=== PATIENT | male | born 1955 | race Caucasian/White ===

== ENCOUNTER 2018-05-01 11:37 | Emergency (ER) | payer BC, MEDICARE ==
[2018-05-01 11:49] VITALS: RESP 16
--- NOTE | 2018-05-01 12:19 | XR ---
EXAMINATION TYPE: XR tibia fibula RT DATE OF EXAM: 05/01/2018 COMPARISON: NONE HISTORY: 63-year-old male with pain TECHNIQUE: 2 views FINDINGS: Right total knee arthroplasty is demonstrated. There is an oblique fracture that shows mild anterior comminution probably involving a portion of the tibial tuberosity. Fractures at the level of the meta diaphysis. On the lateral view, fracture appears to extend to the stem of the tibial tray component. Suspect chronic loose bodies within the knee joint. However, there is a moderate to large in Knee joint effusion. There is minimal posterior angulation at the fracture. There is an additional nondisplaced fracture of the fibular neck. Some bony irregularity along the medial margin of the medial malleolus. Horizontally oriented lucency of the distal tibial metaphysis on the lateral view may be projectional artifact. IMPRESSION: 1. Right total knee arthroplasty with oblique fracture of the proximal tibial metadiaphysis. On the l ateral view, fracture may extend to the stem of the tibial tray component. There is a moderate to lar ge knee joint effusion. 2. The proximal tibial fracture shows mild comminution anteriorly which may involve some of the tibia l tuberosity. Minimal anterior apex angulation of the fracture. 3. Horizontally oriented lucency within the distal tibial metaphysis on the lateral view may be proje ctional artifact. No fracture seen on the frontal view. Dedicated views of the ankle recommended to giselle alexis.
--- NOTE | 2018-05-01 13:28 | ED ---
Fall HPI - General Chief Complaint: Fall Stated Complaint: Fall Time Seen by Provider: 05/01/18 11:47 Source: patient, EMS Mode of arrival: EMS Limitations: no limitations - History of Present Illness Initial Comments: 63-year-old male presents emergency Department with chief complaint of slip and fall. Patient states she slipped on ice and his leg below his knee went to the side. Patient states he had a total knee replacement by Dr. Kemp in 2006. Patient states that he had no other fractures of his leg or injuries. Denies any head injury no loss conscious. Patient was given pain meds by EMS which has helped. Patient denies any chest or shortness breath. - Related Data Home Medications Medication Instructions Recorded Confirmed Cholecalciferol [Vitamin D3] 5,000 unit PO DAILY 06/10/15 05/01/18 Acetaminophen [Tylenol] 500 mg PO Q8H 05/01/18 05/01/18 Albuterol Inhaler [Ventolin Hfa 1 - 2 puff INHALATION RT-Q6H PRN 05/01/18 Inhaler] Aspirin [Parke Aspirin EC] 81 mg PO DAILY 05/01/18 05/01/18 Allergies Allergy/AdvReac Type Severity Reaction Status Date / Time cephalexin monohydrate Allergy Nausea & Verified 05/01/18 12:01 [From Keflex] Vomiting & Diarrhea latex AdvReac Rash/Hives Verified 05/01/18 12:01 Review of Systems ROS Statement: Those systems with pertinent positive or pertinent negative responses have been documented in the HPI. ROS Other: All systems not noted in ROS Statement are negative. Past Medical History Additional Past Medical History / Comment(s): dry skin, vitamin D3 deficient, DVT LEFT LEG History of Any Multi-Drug Resistant Organisms: None Reported Past Surgical History: Joint Replacement, Orthopedic Surgery Additional Past Surgical History / Comment(s): right knee replacement, bilateral hip surgery Past Psychological History: No Psychological Hx Reported Smoking Status: Never smoker Past Alcohol Use History: Occasional Past Drug Use History: None Reported General Exam Limitations: no limitations General appearance: alert, in no apparent distress Head exam: Present: atraumatic, normocephalic, normal inspection Neck exam: Present: normal inspection, full ROM. Absent: tenderness, meningismus, lymphadenopathy Respiratory exam: Present: normal lung sounds bilaterally. Absent: respiratory distress, wheezes, rales, rhonchi, stridor Cardiovascular Exam: Present: regular rate, normal rhythm, normal heart sounds. Absent: systolic murmur, diastolic murmur, rubs, gallop, clicks Extremities exam: Present: other (Right leg isn't noted splint by EMS, there is swelling, tenderness just distal to the knee. Pulses are marked on the right foot are equal bilaterally, there is some purplish discoloration of the foot the patient reports this is normal for her. No distal tib-fib tenderness no femur tenderness noted, mild swelling to the left knee, remaining extremity exam within normal limits) Neurological exam: Present: alert, oriented X3, CN II-XII intact, reflexes normal. Absent: motor sensory deficit Skin exam: Present: warm, dry, intact, normal color. Absent: rash Course Vital Signs 05/01/18 05/01/18 11:39 14:07 Temperature 97.2 F L Pulse Rate 69 60 Respiratory 16 16 Rate Blood Pressure 148/102 152/81 O2 Sat by Pulse 96 98 Oximetry Medical Decision Making - Medical Decision Making 63-year-old male presented for a fall right knee pain, right leg pain. Patient has a fracture below his knee replacement. Patient orthopedic physician is Dr. Kemp. I did attempt to contact office in which his PA and himself are out of the office. Discussed with on-call orthopedics Dr. Davis who recommends the patient to be transferred. I did discuss the [facility]. Disposition Clinical Impression: Fall, Right tibial fracture Disposition: OTHER INSTITUTION NOT DEFINED Condition: Stable Referrals: Hair Rogers MD [Primary Care Provider] - 1-2 days - Out of Hospital Transfer - Req. Specs Out of Hospital Transfer - Requested Specifics: Other Emergency Center ( [facility])
[2018-05-01] MEDS ORDERED: HYDROmorphone 0.5 MG/0.5 ML SYRINGE IVP STA (13:30)
[2018-05-01 16:00] VITALS: BP 136/88; PULSE 68; TEMP 97
== END 2018-05-01 16:06 | disposition short-term general hospital (02) ==
LOC: EC 11:37
DX: S82.151A Displaced fracture of right tibial tuberosity, initial encounter for closed fracture (principal); Z79.82 Long term (current) use of aspirin; Z88.1 Allergy status to other antibiotic agents; Z91.040 Latex allergy status; Z96.651 Presence of right artificial knee joint; W00.0XXA Fall on same level due to ice and snow, initial encounter
CPT/HCPCS: 73590; 99285; 96374; J1170

== ENCOUNTER → 2018-12-28 | Outpatient (CLI) | payer MEDICARE ==
--- NOTE | 2018-12-28 14:47 | MR ---
EXAMINATION TYPE: MR knee LT wo con DATE OF EXAM: 12/28/2018 COMPARISON: Left knee x-ray dated 12/13/2018 HISTORY: Left knee pain TECHNIQUE: Multiplanar, multisequence imaging of the left knee is performed without IV contrast. FINDINGS: MEDIAL MENISCUS: Anterior and posterior horns are intact without tear. LATERAL MENISCUS: There is an oblique tear of posterior horn of the lateral meniscus contiguous thin inferior articular surface. There is also a root tear. There is diffuse thickening of the meniscal fe moral ligament and a 7 mm para meniscal cyst. CRUCIATE LIGAMENTS: The anterior trachea ligament is intact. There is diffuse thickening of the poste rior cruciate ligament with central partial thickness tear. COLLATERAL LIGAMENTS: The medial collateral ligament is intact. There is a tear of the vastus lateral is but appears partial-thickness with intramuscular edema of the distal myotendinous junction and ins ertional fibers. There is thickening of the insertional fibers of the popliteus muscle. There is also thickening of the fibular collateral ligament. EXTENSOR MECHANISM: Visualized quadriceps and patellar tendons are intact. EFFUSION: Complicated suprapatellar joint effusion is moderate containing masslike synovial perforat ion with lobulated margins appearing as pigmented villonodular synovitis. POPLITEAL CYST: No popliteal/day cyst. TRICOMPARTMENT SPACES: Protuberant tricompartmental osteophytes are noted with posterior osteophyte a lso projecting from the medial femoral condyle. CARTILAGE: There is generalized thinning without chondral defect of the medial and lateral compartmen ts with signal heterogeneity throughout the patellofemoral compartment and also well patellar chondra l fissures. BONE MARROW SIGNAL: There is linear T1 hypointense and T2 hypointense signal in the subcortical later al femoral condyle indicative of a subchondral insufficiency fracture with surrounding bone marrow ed laura and spontaneous osteonecrosis of the knee. Bone marrow edema involves the entirety of the lateral femoral condyle extending into the midline proximal metaphysis of the distal femur and patchy air laila ne marrow edema is also seen within the anterior medial femoral condyle. IMPRESSION: 1. 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 2. Findings of pigmented villonodular synovitis. 3. Oblique tear of the posterior horn of the lateral meniscus, root tear, and complex tear of the pos terior horn towards the root. 4. Partial-thickness tears of the myotendinous junction and insertional fibers of the vastus laterali s and posterior cruciate ligament with diffuse thickening suggesting high-grade ligament sprain of th e fibular collateral ligament and high-grade strain of the popliteus muscle. 5. Moderate tricompartmental arthrosis and mild tricompartmental chondrosis.
== END | disposition home or self-care (01) ==
LOC: RADMRIMAIN 11:39
PROVIDERS: ATTEND Orthopaedic Surgery
DX: S72.422A Displaced fracture of lateral condyle of left femur, initial encounter for closed fracture (principal); S83.282A Other tear of lateral meniscus, current injury, left knee, initial encounter; M87.852 Other osteonecrosis, left femur; M17.12 Unilateral primary osteoarthritis, left knee

== ENCOUNTER → 2019-03-21 | Outpatient (CLI) | payer MEDICARE ==
[2019-03-21 14:16] LABS: Basophils % (A) 0 %; Eosinophils # (A) 0.2 k/uL (0-0.7); Eosinophils % (A) 3 %; HCT 49.2 % (39.0-53.0); HGB 15.6 gm/dL (13.0-17.5); Lymphocytes # (A) 1.2 k/uL (1.0-4.8); Lymphocytes % (A) 21 %; MCH 30.5 pg (25.0-35.0); MCHC 31.7 g/dL (31.0-37.0); MCV 96.2 fL (80.0-100.0); Mean Platelet Volume 8.1; Monocytes # (A) 0.4 k/uL (0-1.0); Monocytes % (A) 7 %; Neutrophils # (A) 3.9 k/uL (1.3-7.7); Neutrophils % (A) 67 %; Platelet Count 235 k/uL (150-450); RBC 5.11 m/uL (4.30-5.90); RDW 12.8 % (11.5-15.5); WBC 5.9 k/uL (3.8-10.6)
[2019-03-21 14:29] LABS: Potassium 4.5 mmol/L (3.5-5.1)
== END | disposition home or self-care (01) ==
LOC: LABPAT 13:38
PROVIDERS: ATTEND Orthopaedic Surgery
DX: Z01.818 Encounter for other preprocedural examination (principal); Z01.812 Encounter for preprocedural laboratory examination; M23.92 Unspecified internal derangement of left knee
CPT/HCPCS: 36415; 80051; 85025; 93005

== ENCOUNTER 2019-03-29 11:05 | Day surgery (SDC) | payer MEDICARE ==
[2019-03-26 13:00] VITALS: BMI 33.0
--- NOTE | 2019-03-28 22:35 | HP ---
HISTORY AND PHYSICAL DATE OF SURGERY: 03/29/2019 Garfield Phillips is a 64-year-old patient seen with progressive left knee pain. We discussed options for treatment. He elected to proceed with arthroscopy. Consent regarding the procedure was obtained. PAST MEDICAL HISTORY: Noncontributory. SURGICAL HISTORY: Right total knee arthroplasty, bilateral hip surgery. DAILY MEDICATIONS: Tylenol. ALLERGIES: LATEX, KEFLEX. SOCIAL HISTORY: Denies tobacco use. PHYSICAL EVALUATION OF THE LEFT KNEE: His range of motion is 0 to 130. There is a moderate effusion. Tenderness, lateral joint line. Positive lateral Robby's. Ligaments stable. Hip rotation without pain. Distal neurovascular exam intact. RADIOGRAPHS: Radiographs of the left knee revealed osteoarthritic changes. Left knee MRI revealed lateral meniscal tear, osteoarthritis and possible pigmented villonodular synovitis. IMPRESSION: 1. Internal derangement, left knee, with lateral meniscal tear. 2. Left knee PVN. 3. Left knee osteoarthritis. PLAN: Left knee arthroscopy with partial meniscectomy, partial synovectomy. MMODL / IJN: [id number] /
[~2019-03-29 11:05] MED LIST: DEXAMETHASONE SOD PHOSPHATE 10 MG/ML 1 ML VIAL IV ONE; LACTATED RINGERS 1,000 ML IV SCH; MIDAZOLAM 2 MG/2 ML VIAL IV PRN; SCOPOLAMINE 1.5MG/72HR PATCH TRANSDERM ONE; ceFAZolin 3 GM in SODIUM CHLORIDE 0.9% 100 ML IVPB ONE
[2019-03-29] MEDS ORDERED: LIDOCAINE 1% 20 ML VIAL (10MG/ML) FOR IV START INTRADERMA ONE (11:36)
[2019-03-29] MEDS: ONDANSETRON 4 MG/2 ML VIAL IVP ONE ×2 (11:48→13:28)
[2019-03-29] MEDS ORDERED: LIDOCAINE 1% INJ 10MG/ML (20 ML MDV) ONE (12:19)
[2019-03-29] MEDS ORDERED: SUCCINYLCHOLINE CHLORIDE 100 MG/5 ML SYR IV ONE (12:19)
[2019-03-29] MEDS ORDERED: PROPOFOL 10 MG/ML 20 ML VIAL IV ONE (12:19)
[2019-03-29] MEDS ORDERED: MIDAZOLAM 2 MG/2 ML VIAL ONE (12:19)
[2019-03-29] MEDS ORDERED: fentaNYL (PF) 50 MCG/ML 2 ML AMP ONE (12:19)
[2019-03-29] MEDS ORDERED: SODIUM CHLORIDE 0.9% 100 ML with CLINDAMYCIN 900 MG IV ONE ×2 (12:36)
[2019-03-29] MEDS ORDERED: BUPIVACAIN-EPI 0.25%-1:200,000 30 ML VIAL SQ ONE (12:46)
[2019-03-29 13:20] VITALS: TEMP 97.6
--- NOTE | 2019-03-29 13:21 | P.OP ---
Date of Procedure: 03/29/19 Preoperative Diagnosis: Internal derangement left knee Postoperative Diagnosis: 1. Tear lateral meniscus left knee 2. Reactive synovitis medial, lateral and suprapatellar compartments left knee Procedure(s) Performed: 1. Arthroscopic partial lateral meniscectomy left knee 2. Arthroscopic partial synovectomy medial, lateral and suprapatellar compartments left knee Anesthesia: ROMYA, local Surgeon: Balaji Coronel Estimated Blood Loss (ml): 5 Pathology: none sent Condition: stable Disposition: PACU Indications for Procedure: 64-year-old patient seen with progressive left knee pain. After treatment options were discussed, he elected to proceed with arthroscopy. Operative Findings: see description of procedure Description of Procedure: Patient was taken to the operative suite. Patient underwent a general anesthe tic by the department of anesthesia. Patient was given preoperative antibiotics. The left lower extremity was placed in a well-padded arthroscopic leg pinto. The left leg was prepped and draped in the normal sterile orthopedic fashion. A lateral parapatellar and suprapatellar incision was made. Trochars were inserted. Arthroscopy was initiated. Suprapatellar pouch revealed diffuse thick reactive appearing synovitis. The patellofemoral joint appeared to articulate congruently. There was grade 2/3 chondromalacia of the patellofemoral joint, no osteochondral tears were present. The scope was guided into the medial gutter. No loose bodies or plica were identified. The scope was then guided into the medial compartment. A medial parapatellar incision was made. Trocar inserted followed by probe. There was some fraying along the midbody of the medial meniscus. There was thick reactive appearing synovitis anteriorly. There were grade 2/3 chondromalacia changes of the tibial plateau and grade 2 chondromalacia changes of the femoral condyle. I introduced a motorized shaver and performed a partial synovectomy decompressing the synovitis. I debrided out that area fraying in the medial meniscus. Shaver was removed. There appeared be good decompression of the synovitis. Scope and probe were then guided into the intercondylar notch. Cruciates were identified, probed and found to be stable. The scope and probe were then guided into lateral compartment. There was a complex tear involving the mid body and posterior horn of the lateral meniscus. There was thick reactive appearing synovitis anteriorly. There were grade 1/2 chondromalacia changes of lateral compartment. I performed a partial lateral meniscectomy. I performed a partial synovectomy decompressing that thick synovitis. The residual meniscus was not probed and found to be stable. There was good decompression of the synovitis. The scope was in guided back into the suprapatellar compartment. I introduced a motorized shaver into the super patellar compartment. I debrided some piecemeal fragments of meniscus I encountered. I performed a partial synovectomy decompressing the thick diffuse synovitis. Shaver was removed. I now took one more look around the entire knee, no residual debris. Instruments were now removed from the joint. The joint was infiltrated with .25% Marcaine. Steri- Strips were applied to the portal sites. Sterile dressings were applied. The patient was placed into a VIVIEN hose. No tourniquet was utilized. The patient was awakened, transferred to a bed and taken to recovery stable satisfactory condition.
[2019-03-29] MEDS: HYDROmorphone 0.5 MG/0.5 ML SYRINGE IVP PRN ×2 (13:25→13:30)
[2019-03-29] MEDS ORDERED: KETOROLAC 30 MG/ML 1 ML VIAL IVP ONE (13:28)
[2019-03-29] MEDS ORDERED: HYDROcodone/APAP 7.5-325MG 1 EACH TAB PO ONE (14:22)
[2019-03-29 15:07] VITALS: BP 138/84; PULSE 60; RESP 20
== END 2019-03-29 15:09 | disposition home or self-care (01) ==
LOC: OR 11:05
PROVIDERS: ATTEND Orthopaedic Surgery
DX: S83.282A Other tear of lateral meniscus, current injury, left knee, initial encounter (principal); X58.XXXA Exposure to other specified factors, initial encounter; M65.862 Other synovitis and tenosynovitis, left lower leg; M22.42 Chondromalacia patellae, left knee; M17.12 Unilateral primary osteoarthritis, left knee; Z97.2 Presence of dental prosthetic device (complete) (partial); Z79.899 Other long term (current) drug therapy; Z88.1 Allergy status to other antibiotic agents; Z91.040 Latex allergy status
CPT/HCPCS: 29881; 29876; J2250; J1100; J2405; J2001; J3010; J1885; J0330; J2704; J1170

== ENCOUNTER → 2023-04-05 | Day surgery (SDC) | payer MEDICARE ==
[2023-03-31 09:42] VITALS: BMI 29.6
[~2023-04-05] MED LIST changes: -DEXAMETHASONE SOD PHOSPHATE 10 MG/ML 1 ML VIAL IV ONE; +LIDOCAINE 1% (10MG/ML) FOR IV START INTRADERMA PRN; +LIDOCAINE 1% INJ 10MG/ML (20 ML MDV) ONE; -MIDAZOLAM 2 MG/2 ML VIAL IV PRN; +ONDANSETRON 4 MG/2 ML VIAL IVP PRN; +PROPOFOL 10 MG/ML 20 ML VIAL IV ONE; -SCOPOLAMINE 1.5MG/72HR PATCH TRANSDERM ONE; -ceFAZolin 3 GM in SODIUM CHLORIDE 0.9% 100 ML IVPB ONE
[2023-04-05 11:14] VITALS: TEMP 96.9
--- NOTE | 2023-04-05 12:53 | P.PCN ---
Date of Procedure: 04/05/23 Procedure(s) Performed: BRIEF HISTORY: Patient is a 68-year-old pleasant white male scheduled for an elective colonoscopy as a part of screening for colon cancer/positive cologuard. PROCEDURE PERFORMED: Colonoscopy snare polypectomy. PREOPERATIVE DIAGNOSIS: Screening for colon cancer/positivecologuard.. IV sedation per Anesthesia. PROCEDURE: After informed consent was obtained, the patient, was brought into the endoscopy unit. IV sedation was administered by Anesthesia under continuous monitoring. Digital rectal examination was normal. Initially the Olympus CF-160 flexible video colonoscope was then inserted in the rectum, gradually advanced into the cecum without any difficulty. Careful examination was performed as the scope was gradually being withdrawn. Ileocecal valve and the appendiceal orifice were visualized and appeared normal. Prep was fair.. Mucosa of the cecum, ascending colon, appeared normal. In the transverse colon there were 2 polyps measuring 5 mm and 1 cm in size removed by snare polypectomy. In the descending colon there were 4 polyps measuring between 5 mm to 1 cm in size removed by snare polypectomy in the sigmoid: There was a 4 mm and 5 mm polyp removed by snare polypectomy. In the rectum there was a 5 mm and 1 cm polyp removed by snare polypectomy. Retroflexion was performed in the rectum and no lesions were seen. The patient tolerated the procedure well. IMPRESSION: 5 mm and 1 cm transverse colon polyp status post cold snare polypectomy 5 mm, 3 mm 2 and 1 cm descending colon polyp status post polypectomy 4 mm and 5 mm colon polyp status post polypectomy 5 mm and 1 cm rectal polyp status post polypectomy RECOMMENDATIONS: Findings of this examination were discussed with the patient as well as his family.. He was advised to follow with the biopsy results. If the biopsy results adenoma he can have a repeat colonoscopy in 3 years
[2023-04-05 12:56] VITALS: BP 130/79; PULSE 69; RESP 17
== END | disposition home or self-care (01) ==
LOC: ORWHC2ENDO 09:24
PROVIDERS: ATTEND Internal Medicine Gastroenterology
DX: D12.3 Benign neoplasm of transverse colon (principal); D12.4 Benign neoplasm of descending colon; D12.5 Benign neoplasm of sigmoid colon; D12.8 Benign neoplasm of rectum; I25.2 Old myocardial infarction; I48.91 Unspecified atrial fibrillation; I25.10 Atherosclerotic heart disease of native coronary artery without angina pectoris; Z95.1 Presence of aortocoronary bypass graft; Z79.899 Other long term (current) drug therapy; Z98.890 Other specified postprocedural states
CPT/HCPCS: 45385; J2001; J2704; 88305

== ENCOUNTER 2023-10-21 07:45 | Day surgery (SDC) | payer MEDICARE ==
[~2023-10-21 07:45] MED LIST changes: +BENZOCAINE SPRAY 1 CAN ONE; -LACTATED RINGERS 1,000 ML IV SCH; -LIDOCAINE 1% (10MG/ML) FOR IV START INTRADERMA PRN; -LIDOCAINE 1% INJ 10MG/ML (20 ML MDV) ONE; -ONDANSETRON 4 MG/2 ML VIAL IVP PRN; +SODIUM CHLORIDE 0.9% 1,000 ML BAG ONE
== END 2023-10-21 12:55 ==
LOC: OR 07:45
PROVIDERS: ATTEND Internal Medicine Interventional Cardiology
DX: I48.0 Paroxysmal atrial fibrillation (principal)
CPT/HCPCS: 92960; 93312; 93320; 93325

== ENCOUNTER 2024-01-13 19:33 | Inpatient (IN) | payer MEDICARE ==
--- NOTE | 2024-01-13 19:43 | ED ---
Arrhythmia/Palpitations HPI - General Chief Complaint: Arrhythmia/Palpitations Stated Complaint: SOB,Heart Issues-Sent by Dr Fay Time Seen by Provider: 01/13/24 19:41 Source: patient, RN notes reviewed, old records reviewed Mode of arrival: wheelchair Limitations: no limitations - History of Present Illness Initial Comments: This is a 68-year-old male sent to the ER for evaluation of abnormal heart rate bradycardia, sent in by drycleaner for admission and evaluation MD Complaint: irregular heart beat (Low heart rate) -: unknown Associated Symptoms: denies other symptoms Treatments Prior to Arrival: other (0) - Related Data Home Medications Medication Instructions Recorded Confirmed Apixaban [Eliquis] 5 mg PO BID 01/13/24 01/13/24 Cholecalciferol [Vitamin D3 (125 125 mcg PO DAILY 01/13/24 01/13/24 Mcg = 5000 Iu)] Previous Rx's Medication Instructions Recorded Atorvastatin [Lipitor] 40 mg PO HS #180 tab 01/18/24 Losartan [Cozaar] 25 mg PO DAILY #180 tab 01/18/24 Allergies Allergy/AdvReac Type Severity Reaction Status Date / Time hydrocodone Allergy CONFUSION/H Verified 01/13/24 20:41 ALLUCINATIO NS cephalexin monohydrate AdvReac Nausea & Verified 01/13/24 20:41 [From Keflex] Vomiting & Diarrhea clindamycin AdvReac Nausea & Verified 01/13/24 20:41 Vomiting & Diarrhea latex AdvReac Rash/Hives Verified 01/13/24 20:41 Review of Systems ROS Statement: Those systems with pertinent positive or pertinent negative responses have been documented in the HPI. ROS Other: All systems not noted in ROS Statement are negative. Past Medical History Past Medical History: Atrial Fibrillation, Deep Vein Thrombosis (DVT), Myocardial Infarction ([place]) Additional Past Medical History / Comment(s): vitamin D3 deficient, DVT LEFT LEG, right leg x 2. slivers to both feet and then removed 03/24/23, was on abx and was allergic and stopped taking it and unsure what med is , mi x6 05/06. chronic kidney disease 3A no meds or dialysis. Liver enzymes elevated rechecking after colonoscopy Last Myocardial Infarction Date:: 05/06 History of Any Multi-Drug Resistant Organisms: C-DIFF Date of last positivie culture/infection: c-diff 2013 MDRO Source:: stool Past Surgical History: Heart Catheterization, Heart Catheterization With Stent, Joint Replacement, Orthopedic Surgery Additional Past Surgical History / Comment(s): right knee replacement, bilateral hip surgery, heart cath, varicose vein removal. Past Anesthesia/Blood Transfusion Reactions: No Reported Reaction Additional Past Anesthesia/Blood Transfusion Reaction / Comment(s): no blood transfusion Date of Last Stent Placement:: 04/27/22 Past Psychological History: No Psychological Hx Reported Smoking Status: Current some day smoker Past Alcohol Use History: None Reported Past Drug Use History: None Reported - Past Family History Father Family Medical History: Cancer Brother(s) Family Medical History: Cancer Additional Family Medical History / Comment(s): prostate Mother Additional Family Medical History / Comment(s): Mother was exposed to lead paint during General Exam General appearance: alert, in no apparent distress Head exam: Present: atraumatic, normocephalic, normal inspection Eye exam: Present: normal appearance, PERRL, EOMI. Absent: scleral icterus, conjunctival injection, periorbital swelling ENT exam: Present: normal exam, mucous membranes moist Neck exam: Present: normal inspection. Absent: tenderness, meningismus, lymphadenopathy Respiratory exam: Present: normal lung sounds bilaterally. Absent: respiratory distress, wheezes, rales, rhonchi, stridor Cardiovascular Exam: Present: regular rate, normal rhythm, normal heart sounds. Absent: systolic murmur, diastolic murmur, rubs, gallop, clicks GI/Abdominal exam: Present: soft, normal bowel sounds. Absent: distended, tenderness, guarding, rebound, rigid Extremities exam: Present: normal inspection, full ROM, normal capillary refill. Absent: tenderness, pedal edema, joint swelling, calf tenderness Back exam: Present: normal inspection Neurological exam: Present: alert, oriented X3, CN II-XII intact Psychiatric exam: Present: normal affect, normal mood Skin exam: Present: warm, dry, intact, normal color. Absent: rash Course Vital Signs 01/13/24 01/13/24 19:35 21:17 Temperature 97.8 F 97.6 F Pulse Rate 68 60 Respiratory 18 18 Rate Blood Pressure 121/82 137/86 O2 Sat by Pulse 97 98 Oximetry - Reevaluation(s) Reevaluation #1: 01/13/24 20:07 Medical records reviewed Reevaluation #2: 01/13/24 20:34 Patient informed of results and questions answered Reevaluation #3: 01/13/24 20:35 Patient has no improvement in symptoms, will hold all beta-blockers or heart rate reducing medications Reevaluation #4: Was pt. sent in by a medical professional or institution (TATUM Markham, SENIOR BIOINFORMATICS SCIENTIST, urgent care, hospital, or [facility]...) When possible be specific @ -no Did you speak to anyone other than the patient for history (EMS, parent, family, police, friend...)? What history was obtained from this source @ -no Did you review nursing and triage notes (agree or disagree)? Why? @ -agree Are old charts reviewed (outside hosp., previous admission, EMS record, old EKG, old radiological studies, urgent care reports/EKG's, [facility] records)? Report findings @ -yes Differential Diagnosis (chest pain, altered mental status, abdominal pain women, abdominal pain men, vaginal bleeding, weakness, fever, dyspnea, syncope, headache, dizziness, GI bleed, back pain, seizure, CVA, palpatations, mental he alth, musculoskeletal)? @ -prior EKG interpreted by me (3pts min.). @ -yes X-rays interpreted by me (1pt min.). @ -yes negative for acute disease CT interpreted by me (1pt min.). @ -no U/S interpreted by me (1pt. min.). @ -no What testing was considered but not performed or refused? (CT, X-rays, U/S, labs)? Why? @ -none What meds were considered but not given or refused? Why? @ -none Did you discuss the management of the patient with other professionals (professionals i.e. TAT[facility] Markham, SENIOR BIOINFORMATICS SCIENTIST, lab, RT, psych nurse, pediatric social worker, hand molder meat, teacher, operations officer, medical case manager)? Give summary @ -no Was smoking cessation discussed for >3mins.? @ -no Was critical care preformed (if so, how long)? @ -yes31 Were there social determinants of health that impacted care today? How? (Homelessness, low income, unemployed, alcoholism, drug addiction, transportation, low edu. Level, literacy, decrease access to med. care, alf, rehab)? @ -none Was there de-escalation of care discussed even if they declined (Discuss DNR or withdrawal of care, Hospice)? DNR status @ -no What co-morbidities impacted this encounter? (DM, HTN, Smoking, COPD, CAD, Cancer, CVA, ARF, Chemo, Hep., AIDS, mental health diagnosis, sleep apnea, morbid obesity)? @ -none Was patient admitted / discharged? Hospital course, mention meds given and route, prescriptions, significant lab abnormalities, going to OR and other pertinent info. @ - 68 male sent in by his own drycleaner for admission regards to bradycardia Admitted Undiagnosed new problem with uncertain prognosis? @ -no Drug Therapy requiring intensive monitoring for toxicity (Heparin, Nitro, Insulin, Cardizem)? @ -no Were any procedures done? @ -no Diagnosis/symptom? @ -Bradycardia arrhythmia Acute, or Chronic, or Acute on Chronic? @ -Acute Uncomplicated (without systemic symptoms) or Complicated (systemic symptoms)? @ -Complicated Side effects of treatment? @ -no Exacerbation, Progression, or Severe Exacerbation? @ -exacerbation Poses a threat to life or bodily function? How? (Chest pain, [place], HI, pneumonia, PE, COPD, DKA, ARF, appy, cholecystitis, CVA, Diverticulitis, Homicidal, Suicidal, threat to staff... and all critical care pts) @ -yes with arrhythmia Reevaluation #5: Differential Palpitations Ventricular arrhythmias, atrial arrhythmias, myocardial infarction, anemia, thyrotoxicosis, electrolyte imbalance, hypokalemia, pulmonary embolism, pulmonary disease, drugs, alcohol, anxiety, stress.... This is not meant to be an all-inclusive list. - Consultations Consultation #1: Spoke with shannon who agrees to admit this patient EKG Findings - EKG Comments: EKG Findings:: EKG is A-fib 53 QRS 86 QTc 390 - EKG Results: EKG: interpreted by JACQUED Medical Decision Making - Medical Decision Making 68 male sent in by his own drycleaner for admission regards to bradycardia - Lab Data Result diagrams: 01/17/24 06:10 01/17/24 06:10 Lab Results 01/13/24 01/13/24 01/13/24 Range/Units 20:02 20:02 20:02 WBC 8.4 (3.8-10.6) k/uL RBC 5.19 (4.30-5.90) m/uL Hgb 15.9 (13.0-17.5) gm/dL Hct 48.7 (39.0-53.0) % MCV 93.8 (80.0-100.0) fL MCH 30.6 (25.0-35.0) pg MCHC 32.6 (31.0-37.0) g/dL RDW 13.1 (11.5-15.5) % Plt Count 204 (150-450) k/uL MPV 8.5 Neutrophils % 74 % Lymphocytes % 16 % Monocytes % 6 % Eosinophils % 2 % Basophils % 0 % Neutrophils # 6.3 (1.3-7.7) k/uL Lymphocytes # 1.3 (1.0-4.8) k/uL Monocytes # 0.5 (0-1.0) k/uL Eosinophils # 0.2 (0-0.7) k/uL Basophils # 0.0 (0-0.2) k/uL PT 11.5 (10.0-12.5) sec INR 1.1 (<1.2) APTT 24.7 (22.0-30.0) sec Sodium 141 (137-145) mmol/L Potassium 5.0 (3.5-5.1) mmol/L Chloride 112 H (98-107) mmol/L Carbon Dioxide 23 (22-30) mmol/L Anion Gap 6 mmol/L BUN 29 H (9-20) mg/dL Creatinine 1.38 H (0.66-1.25) mg/dL Est GFR (CKD-EPI)AfAm 60 (>60 ml/min/1.73 sqM) Est GFR (CKD-EPI)NonAf 52 (>60 ml/min/1.73 sqM) Glucose 131 H (74-99) mg/dL Calcium 9.3 (8.4-10.2) mg/dL Magnesium 1.9 (1.6-2.3) mg/dL Total Bilirubin 1.3 (0.2-1.3) mg/dL AST 49 (17-59) U/L ALT 49 (4-49) U/L Alkaline Phosphatase 101 (38-126) U/L Troponin I (0.000-0.034) ng/mL Total Protein 7.3 (6.3-8.2) g/dL Albumin 4.2 (3.5-5.0) g/dL TSH 1.880 (0.465-4.680) mIU/L 01/13/24 Range/Units 20:02 WBC (3.8-10.6) k/uL RBC (4.30-5.90) m/uL Hgb (13.0-17.5) gm/dL Hct (39.0-53.0) % MCV (80.0-100.0) fL MCH (25.0-35.0) pg MCHC (31.0-37.0) g/dL RDW (11.5-15.5) % Plt Count (150-450) k/uL MPV Neutrophils % % Lymphocytes % % Monocytes % % Eosinophils % % Basophils % % Neutrophils # (1.3-7.7) k/uL Lymphocytes # (1.0-4.8) k/uL Monocytes # (0-1.0) k/uL Eosinophils # (0-0.7) k/uL Basophils # (0-0.2) k/uL PT (10.0-12.5) sec INR (<1.2) APTT (22.0-30.0) sec Sodium (137-145) mmol/L Potassium (3.5-5.1) mmol/L Chloride (98-107) mmol/L Carbon Dioxide (22-30) mmol/L Anion Gap mmol/L BUN (9-20) mg/dL Creatinine (0.66-1.25) mg/dL Est GFR (CKD-EPI)AfAm (>60 ml/min/1.73 sqM) Est GFR (CKD-EPI)NonAf (>60 ml/min/1.73 sqM) Glucose (74-99) mg/dL Calcium (8.4-10.2) mg/dL Magnesium (1.6-2.3) mg/dL Total Bilirubin (0.2-1.3) mg/dL AST (17-59) U/L ALT (4-49) U/L Alkaline Phosphatase (38-126) U/L Troponin I <0.012 (0.000-0.034) ng/mL Total Protein (6.3-8.2) g/dL Albumin (3.5-5.0) g/dL TSH (0.465-4.680) mIU/L Critical Care Time Critical Care Time: Yes Total Critical Care Time: 31 Disposition Clinical Impression: Palpitations, Bradycardia Disposition: ADMITTED IP TO THIS HOSP Condition: Stable Is patient prescribed a controlled substance at d/c from ED?: No Time of Disposition: 20:40
[2024-01-13 20:28] LABS: Basophils % (A) 0 %; Eosinophils # (A) 0.2 k/uL (0-0.7); Eosinophils % (A) 2 %; HCT 48.7 % (39.0-53.0); HGB 15.9 gm/dL (13.0-17.5); Lymphocytes # (A) 1.3 k/uL (1.0-4.8); Lymphocytes % (A) 16 %; MCH 30.6 pg (25.0-35.0); MCHC 32.6 g/dL (31.0-37.0); MCV 93.8 fL (80.0-100.0); Mean Platelet Volume 8.5; Monocytes # (A) 0.5 k/uL (0-1.0); Monocytes % (A) 6 %; Neutrophils # (A) 6.3 k/uL (1.3-7.7); Neutrophils % (A) 74 %; Platelet Count 204 k/uL (150-450); RBC 5.19 m/uL (4.30-5.90); RDW 13.1 % (11.5-15.5); WBC 8.4 k/uL (3.8-10.6)
[2024-01-13] MEDS ORDERED: NALOXONE 0.4 MG/ML 1 ML VIAL IV PRN (20:31)
[2024-01-13] MEDS: SODIUM CHLORIDE 0.9% 1,000 ML IV STA (20:31)
[2024-01-13] MEDS ORDERED: MORPHINE SULFATE 4 MG/ML SYRINGE IV PRN (20:31)
[2024-01-13] MEDS ORDERED: ONDANSETRON 4 MG/2 ML VIAL IVP PRN (20:31)
[2024-01-13] MEDS: SODIUM CHLORIDE 0.9% 500 ML 500 ML IV STA (20:32)
[2024-01-13] MEDS: SODIUM CHLORIDE 0.9% 1,000 ML IV SCH (20:35)
[2024-01-13 20:38] LABS: INR 1.1 (<1.2); Partial Thromboplastin Time 24.7 sec (22.0-30.0); Prothrombin Time 11.5 sec (10.0-12.5)
[2024-01-13 20:41] LABS: ALT 49 U/L (4-49); African American GFR (CKD) 60 (>60 ml/min/1.73 sqM); Albumin 4.2 g/dL (3.5-5.0); Anion Gap 6 mmol/L; Blood Urea Nitrogen 29 mg/dL (9-20); Calcium 9.3 mg/dL (8.4-10.2); Carbon Dioxide 23 mmol/L (22-30); Chloride 112 mmol/L (98-107); Glucose 131 mg/dL (74-99); Non-African American GFR(CKD) 52 (>60 ml/min/1.73 sqM); Sodium 141 mmol/L (137-145); Total Bilirubin 1.3 mg/dL (0.2-1.3); Total Protein 7.3 g/dL (6.3-8.2)
[2024-01-13 20:44] LABS: AST 49 U/L (17-59); Magnesium 1.9 mg/dL (1.6-2.3)
[2024-01-13 20:45] LABS: Alkaline Phosphatase 101 U/L (38-126)
--- NOTE | 2024-01-13 23:07 | P.HPIM ---
History of Present Illness H&P Date: 01/13/24 Chief Complaint: bradycardia Chief complaint: Bradycardia History of present illness; 68-year-old male with hypertension, dyslipidemia, and history of stent placement in 2022 presents with bradycardia. Patient reports he was sent by his event marketing manager (Nya) for admission and further evaluation. Patient reports he was wearing a front desk monitor ordered by Dr. Fay for the past 5 days. Patient reports he previously was taking Coreg 3.125 mg twice daily, but received a call from Dr. Fay's office telling him to change the scheduling to only once per day due to them seeing his heart rate become quite low on the monitor that he was wearing. Yesterday he received a ca ll from the office saying that he should decrease the dose further and only take half of Coreg 3.125 mg once a day. Today patient reports he received a call from Dr. Fay telling him to discontinue Coreg completely and highly consider coming to the ER so that he could be admitted and seen by Dr. Fay tomorrow and be monitored overnight. Patient admits to shortness of breath which she says is chronic, but denies chest pain, palpitations, abdominal pain, diarrhea nausea vomiting and constipation. Patient admitted to internal medicine service REVIEW OF SYSTEMS: As per HPI above. The rest of the 14-point review of systems is negative. PHYSICAL EXAMINATION: GENERAL: The patient is alert and oriented x3, not in any acute distress. Well developed, well nourished. HEENT: Pupils are round and equally reacting to light. EOMI. No scleral icterus. No conjunctival pallor. Normocephalic, atraumatic. CARDIOVASCULAR: S1 and S2 present. No murmurs, rubs, or gallops. Irregularly irregular rhythm. PULMONARY: Chest is clear to auscultation b/l, no wheezing or crackles. ABDOMEN: Soft, nontender, nondistended, normoactive bowel sounds. No palpable organomegaly. MUSCULOSKELETAL: No joint swelling or deformity. EXTREMITIES: No cyanosis, clubbing, or pedal edema. NEUROLOGICAL: Gross neurological examination did not reveal any focal deficits. SKIN: No rashes. Assessment:68-year-old male with hypertension, dyslipidemia, and history of stent placement in 2022 presents with bradycardia. Plan: #Bradycardia #Atrial fibrillation with slow ventricular response Echo from 12/05 shows EF of 55% EKG shows heart rate 53 bpm, atrial fibrillation with slow ventricular response Troponin less than 0.012 and TSH 1.88. Cardiology on consult, appreciate further recommendations Resumed home Eliquis 5 mg p.o. twice daily hold coreg per cardio recs Chronic conditions: #Hyperlipidemia: Continue home Lipitor 80 mg p.o. at bedtime #Hypertension Continue to monitor #Vitamin D deficiency Resume home medication #Obesity #History of coronary stent placement F: NS 20 cc/h E: None N: Heart healthy diet A: Normally ambulates unassisted at home DVT ppx: Eliquis 5 mg p.o. daily GI ppx: Protonix 40 mg p.o. daily Dispo: Pending clinical course Brannon Shannon MD PGY-1 FM Dictation was produced using [employer] dictation software. please excuse any grammatical, word or spelling errors. Past Medical History Past Medical History: Atrial Fibrillation, Deep Vein Thrombosis (DVT), Myocardial Infarction ([place]) Additional Past Medical History / Comment(s): vitamin D3 deficient, DVT LEFT LEG, right leg x 2. slivers to both feet and then removed 03/24/23, was on abx and was allergic and stopped taking it and unsure what med is , mi x6 05/06. chronic kidney disease 3A no meds or dialysis. Liver enzymes elevated rechecking after colonoscopy Last Myocardial Infarction Date:: 05/06 History of Any Multi-Drug Resistant Organisms: C-DIFF Date of last positivie culture/infection: c-diff 2012 MDRO Source:: stool Past Surgical History: Heart Catheterization, Heart Catheterization With Stent, Joint Replacement, Orthopedic Surgery Additional Past Surgical History / Comment(s): right knee replacement, bilateral hip surgery, heart cath, varicose vein removal. Past Anesthesia/Blood Transfusion Reactions: No Reported Reaction Additional Past Anesthesia/Blood Transfusion Reaction / Comment(s): no blood transfusion Date of Last Stent Placement:: 04/27/22 Past Psychological History: No Psychological Hx Reported Smoking Status: Current some day smoker Past Alcohol Use History: None Reported Past Drug Use History: None Reported - Past Family History Father Family Medical History: Cancer Brother(s) Family Medical History: Cancer Additional Family Medical History / Comment(s): prostate Mother Additional Family Medical History / Comment(s): Mother was exposed to lead paint during Medications and Allergies Home Medications Medication Instructions Recorded Confirmed Type Atorvastatin [Lipitor] 80 mg PO HS 03/31/23 01/13/24 History Apixaban [Eliquis] 5 mg PO BID 01/13/24 01/13/24 History Cholecalciferol [Vitamin D3 (125 125 mcg PO DAILY 01/13/24 01/13/24 History Mcg = 5000 Iu)] Allergies Allergy/AdvReac Type Severity Reaction Status Date / Time hydrocodone Allergy CONFUSION/H Verified 01/13/24 20:41 ALLUCINATIO NS cephalexin monohydrate AdvReac Nausea & Verified 01/13/24 20:41 [From Keflex] Vomiting & Diarrhea clindamycin AdvReac Nausea & Verified 01/13/24 20:41 Vomiting & Diarrhea latex AdvReac Rash/Hives Verified 01/13/24 20:41 Physical Exam Vitals: Vital Signs Temp Pulse Resp BP Pulse Ox 01/13/24 19:35 97.8 F 68 18 121/82 97 Intake and Output 01/13/24 01/13/24 01/13/24 06:59 14:59 22:59 Other: Weight 127.006 kg Results CBC & Chem 7: 01/13/24 20:02 01/13/24 20:02 Assessment and Plan Assessment: I have seen and evaluated the patient today. I Discussed the case with the resident and agree with the resident's findings I edited the assessment and plan as necessary as documented in the resident's note.
[2024-01-13] MEDS: ATORVASTATIN 80 MG TAB PO SCH (23:55)
[2024-01-13] MEDS: APIXABAN 5 MG TAB PO SCH (23:55)
[2024-01-14] MEDS: PANTOPRAZOLE 40 MG TABLET PO SCH (05:33)
[2024-01-14 06:28] LABS: Appearance,Urine Clear (Clear); Bilirubin,Urine Negative (Negative); Blood,Urine Negative (Negative); Color,Urine Colorless; Glucose,Urine (UA) Negative (Negative); Ketones,Urine Negative (Negative); Leukocyte Esterase,Urine Negative (Negative); Nitrite,Urine Negative (Negative); Protein,Urine Negative (Negative); Specific Gravity,Urine 1.021 (1.001-1.035)
[2024-01-14 06:58] LABS: Amphetamine Screen,Urine Not Detected (NotDetected); Barbiturate Screen,Urine Not Detected (NotDetected); Benzodiazepines Screen,Urine Not Detected (NotDetected); Cocaine Screen,Urine Not Detected (NotDetected); Methadone Screen, Urine Not Detected (NotDetected); Opiate Screen,Urine Not Detected (NotDetected); Oxycodone Screen, Urine Not Detected (NotDetected); Phencyclidine Screen,Urine Not Detected (NotDetected); Tricyclic Antidepressant,Urine Not Detected (NotDetected); Urn Cannabinoid Scrn Not Detected (NotDetected)
[2024-01-14] MEDS ORDERED: APIXABAN 5 MG TAB PO SCH (09:00)
[2024-01-14 09:07] LABS: Basophils # (A) 0.04 X 10*3/uL (0.00-0.10); Basophils % (A) 0.5 %; Eosinophils # (A) 0.17 X 10*3/uL (0.04-0.35); Eosinophils % (A) 2.1 %; HCT 41.4 % (39.6-50.0); HGB 13.6 g/dL (13.0-17.0); Lymphocytes # (A) 1.88 X 10*3/uL (0.90-5.00); Lymphocytes % (A) 23.6 %; MCH 31.3 pg (27.0-32.0); MCHC 32.9 g/dL (32.0-37.0); MCV 95.4 FL (80.0-97.0); Mean Platelet Volume 11.9 FL (9.5-12.2); Monocytes % (A) 11.3 %; NRBC Per 100 WBC 0 X 10*3/uL (0.00-0.01); Neutrophils # (A) 4.96 X 10*3/uL (1.80-7.70); Neutrophils % (A) 62.2 %; Platelet Count 169 X 10*3/uL (140-440); RBC 4.34 X 10*6/uL (4.40-5.60); RDW 13.1 % (11.5-14.5); WBC 7.97 X 10*3/uL (4.50-10.00)
[2024-01-14] MEDS: CHOLECALCIFEROL 125 MCG (5000 IU) TABLET PO SCH (09:41)
--- NOTE | 2024-01-14 09:42 | P.CRDCN ---
History of Present Illness Consult date: 01/14/24 History of present illness: This is a 68-year-old gentleman who is known to our service from before with a past medical history significant for CAD with a prior stenting of the LCx as well as persistent atrial fibrillation as well as hypertension and dyslipidemia and valvular heart disease/mitral regurgitation was called to come to the emergency department yesterday for further evaluation of bradycardia. He was wearing an event monitor as an outpatient and he did have multiple episodes of sinus pauses around 4 seconds but mostly nocturnal except for last night around 3 PM he did have an episode of sinus pause lasted for about 4.5 seconds. He was asymptomatic but he was advised to go to the emergency department for further evaluation and he was on carvedilol which was stopped. He is here. Since he is off beta-mino he has not been experiencing any more episode of sinus pauses but I am going to watch the patient for additional 24 hours without any AV angel mino agents on board. He is on oral anticoagulation. Currently he reports no pain in the chest but does have shortness of breath with exertion which is somewhat chronic. No dizziness or lightheadedness and no heart racing or fluttering and no presyncope or syncope. The examination is remarkable for irregular rhythm with a systolic murmur at the apical area and clear breathing sounds bilaterally and no edema was noted Assessment Persistent atrial fibrillation with controlled heart rate Multiple episodes of sinus pauses on beta-mino Valvular heart disease Coronary artery disease Obesity Multiple comorbid conditions Plan Continue the current medical regimen Avoid any AV angel mino agents Continue oral anticoagulation Monitor the patient for additional 24 hours Past Medical History Past Medical History: Atrial Fibrillation, Deep Vein Thrombosis (DVT), Myocardial Infarction ([place]) Additional Past Medical History / Comment(s): vitamin D3 deficient, DVT LEFT LEG, right leg x 2. slivers to both feet and then removed 03/24/23, was on abx and was allergic and stopped taking it and unsure what med is , mi x6 05/06. chronic kidney disease 3A no meds or dialysis. Liver enzymes elevated rechecking after colonoscopy Last Myocardial Infarction Date:: 05/06 History of Any Multi-Drug Resistant Organisms: C-DIFF Date of last positivie culture/infection: c-diff 2012 MDRO Source:: stool Past Surgical History: Heart Catheterization, Heart Catheterization With Stent, Joint Replacement, Orthopedic Surgery Additional Past Surgical History / Comment(s): right knee replacement, bilateral hip surgery, heart cath, varicose vein removal. Past Anesthesia/Blood Transfusion Reactions: No Reported Reaction Additional Past Anesthesia/Blood Transfusion Reaction / Comment(s): no blood transfusion Date of Last Stent Placement:: 04/27/22 Past Psychological History: No Psychological Hx Reported Smoking Status: Current some day smoker Past Alcohol Use History: None Reported Past Drug Use History: None Reported - Past Family History Father Family Medical History: Cancer Brother(s) Family Medical History: Cancer Additional Family Medical History / Comment(s): prostate Mother Additional Family Medical History / Comment(s): Mother was exposed to lead paint during Medications and Allergies Home Medications Medication Instructions Recorded Confirmed Type Atorvastatin [Lipitor] 80 mg PO HS 03/31/23 01/13/24 History Apixaban [Eliquis] 5 mg PO BID 01/13/24 01/13/24 History Cholecalciferol [Vitamin D3 (125 125 mcg PO DAILY 01/13/24 01/13/24 History Mcg = 5000 Iu)] Allergies Allergy/AdvReac Type Severity Reaction Status Date / Time hydrocodone Allergy CONFUSION/H Verified 01/13/24 20:41 ALLUCINATIO NS cephalexin monohydrate AdvReac Nausea & Verified 01/13/24 20:41 [From Keflex] Vomiting & Diarrhea clindamycin AdvReac Nausea & Verified 01/13/24 20:41 Vomiting & Diarrhea latex AdvReac Rash/Hives Verified 01/13/24 20:41 Physical Exam Vitals: Vital Signs Temp Pulse Pulse Resp BP BP Pulse Ox 01/14/24 07:00 97.7 F 71 17 139/78 98 01/14/24 02:00 98.1 F 67 16 129/71 98 01/14/24 01:40 16 01/13/24 22:20 97.7 F 60 16 138/69 98 01/13/24 21:17 97.6 F 60 18 137/86 98 01/13/24 19:35 97.8 F 68 18 121/82 97 Intake and Output 01/13/24 01/14/24 01/14/24 22:59 06:59 14:59 Other: Voiding Method Toilet # Voids 3 Weight 127.006 kg Results 01/14/24 05:13 01/13/24 20:02 Cardiac Enzymes 01/13/24 01/13/24 01/14/24 Range/Units 20:02 20:02 00:52 AST 49 (17-59) U/L Troponin I <0.012 <0.012 (0.000-0.034) ng/mL 01/14/24 Range/Units 05:13 AST (17-59) U/L Troponin I <0.012 (0.000-0.034) ng/mL Coagulation 01/13/24 Range/Units 20:02 PT 11.5 (10.0-12.5) sec APTT 24.7 (22.0-30.0) sec CBC 01/13/24 01/14/24 Range/Units 20:02 05:13 WBC 8.4 7.97 (3.8-10.6) k/uL RBC 5.19 4.34 L (4.30-5.90) m/uL Hgb 15.9 13.6 (13.0-17.5) gm/dL Hct 48.7 41.4 (39.0-53.0) % Plt Count 204 169 (150-450) k/uL Comprehensive Metabolic Panel 01/13/24 Range/Units 20:02 Sodium 141 (137-145) mmol/L Potassium 5.0 (3.5-5.1) mmol/L Chloride 112 H (98-107) mmol/L Carbon Dioxide 23 (22-30) mmol/L BUN 29 H (9-20) mg/dL Creatinine 1.38 H (0.66-1.25) mg/dL Glucose 131 H (74-99) mg/dL Calcium 9.3 (8.4-10.2) mg/dL AST 49 (17-59) U/L ALT 49 (4-49) U/L Alkaline Phosphatase 101 (38-126) U/L Total Protein 7.3 (6.3-8.2) g/dL Albumin 4.2 (3.5-5.0) g/dL Current Medications Generic Name Dose Route Start Last Admin Trade Name Freq PRN Reason Stop Dose Admin Apixaban 5 mg 01/13/24 23:38 01/13/24 23:55 Apixaban 5 Mg Tab PO 5 mg BID NILSON Administration Protocol Atorvastatin Calcium 80 mg 01/13/24 23:45 01/13/24 23:55 Atorvastatin 80 Mg Tab PO 80 mg HS NILSON Administration Cholecalciferol 125 mcg 01/14/24 09:00 Cholecalciferol 125 Mcg (5000 Iu) Tablet PO DAILY [facility] Sodium Chloride 1,000 mls @ 20 mls/hr 01/14/24 20:45 Saline 0.9% IV .Q24H [facility] Morphine Sulfate 4 mg 01/13/24 20:31 Morphine Sulfate 4 Mg/Ml Syringe IV Q4HR PRN Severe Pain (Scale 7 to 10) Naloxone HCl 0.2 mg 01/13/24 20:31 Naloxone 0.4 Mg/Ml 1 Ml Vial IV Q2M PRN Opioid Reversal Ondansetron HCl 4 mg 01/13/24 20:31 Ondansetron 4 Mg/2 Ml Vial IVP Q8HR PRN Nausea And Vomiting Pantoprazole Sodium 40 mg 01/14/24 07:30 01/14/24 05:33 Pantoprazole 40 Mg Tablet PO 40 mg [id number] [facility] Administration Intake and Output 01/13/24 01/14/24 01/14/24 22:59 06:59 14:59 Other: Voiding Method Toilet # Voids 3 Weight 127.006 kg 01/14/24 05:13 01/13/24 20:02
--- NOTE | 2024-01-14 11:35 | P.PN ---
Subjective Progress Note Date: 01/14/24 Hospital course History of present illness; 68-year-old male with hypertension, dyslipidemia, and history of stent placement in 2022 presents with bradycardia. Patient reports he was sent by his factorer (Nya) for admission and further evaluation. Patient reports he was wearing a health informatics advisor ordered by Dr. Fay for the past 5 days. Patient reports he previously was taking Coreg 3.125 mg twice daily, but received a call from Dr. Fay's office telling him to wets e the scheduling to only once per day due to them seeing his heart rate become quite low on the monitor that he was wearing. Yesterday he received a call from the office saying that he should decrease the dose further and only take half of Coreg 3.125 mg once a day. Today patient reports he received a call from Dr. Fay telling him to discontinue Coreg completely and highly consider coming to the ER so that he could be admitted and seen by Dr. Fay. Patient seen this morning. He denies any presyncope dizziness or lightheadedness. He states that he feels well. 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 twice daily. Chronic conditions #Hyperlipidemia: Continue home Lipitor 80 mg p.o. at bedtime #Hypertension Continue to monitor #Vitamin D deficiency Resume home medication #Obesity #History of coronary stent placement DVT prophylaxis: Eliquis Anticipate patient ready for discharge in next 24 hours.Hospital course History of present illness; 68-year-old male with hypertension, dyslipidemia, and history of stent placement in 2022 presents with bradycardia. Patient reports he was sent by his factorer (Nya) for admission and further evaluation. Patient reports he was wearing a health informatics advisor ordered by Dr. Fay for the past 5 days. Patient reports he previously was taking Coreg 3.125 mg twice daily, but received a call from Dr. Fay's office telling him to change the scheduling to only once per day due to them seeing his heart rate become quite low on the monitor that he was wearing. Yesterday he received a call from the office saying that he should decrease the dose further and only take half of Coreg 3.125 mg once a day. Today patient reports he received a call from Dr. Fay telling him to discontinue Coreg completely and highly consider coming to the ER so that he could be admitted and seen by Dr. Fay. Patient seen this morning. He denies any presyncope dizziness or lightheadedness. He states that he feels well. 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 twice daily. Chronic conditions #Hyperlipidemia: Continue home Lipitor 80 mg p.o. at bedtime #Hypertension Continue to monitor #Vitamin D deficiency Resume home medication #Obesity #History of coronary stent placement DVT prophylaxis: Eliquis Anticipate patient ready for discharge in next 24 hours. Objective - Vital Signs Vital signs: Vital Signs Temp 97.7 F 01/14/24 07:00 Pulse 71 01/14/24 07:00 Resp 17 01/14/24 07:00 BP 139/78 01/14/24 07:00 Pulse Ox 98 01/14/24 07:00 FiO2 Intake & Output 01/13/24 01/14/24 01/14/24 18:59 06:59 18:59 Weight 127.006 kg Other: Voiding Method Toilet # Voids 3 - Labs CBC & Chem 7: 01/14/24 05:13 01/13/24 20:02 Labs: Abnormal Lab Results - Last 24 Hours (Table) 01/13/24 01/14/24 Range/Units 20:02 05:13 RBC 4.34 L (4.40-5.60) X 10*6/uL Chloride 112 H (98-107) mmol/L BUN 29 H (9-20) mg/dL Creatinine 1.38 H (0.66-1.25) mg/dL Glucose 131 H (74-99) mg/dL
[2024-01-14] MEDS: SODIUM CHLORIDE 0.9% 1,000 ML IV SCH (20:57)
[2024-01-14] MEDS ORDERED: ATORVASTATIN 80 MG TAB PO SCH (21:00)
--- NOTE | 2024-01-15 14:10 | P.PN ---
Subjective Progress Note Date: 01/15/24 This is a 68-year-old gentleman who is known to our service from before with a past medical history significant for CAD with a prior stenting of the LCx as well as persistent atrial fibrillation as well as hypertension and dyslipidemia and valvular heart disease/mitral regurgitation was called to come to the emergency department yesterday for further evaluation of bradycardia. He was wearing an event monitor as an outpatient and he did have multiple episodes of sinus pauses around 4 seconds but mostly nocturnal except for last night around 3 PM he did have an episode of sinus pause lasted for about 4.5 seconds. He was asymptomatic but he was advised to go to the emergency department for further evaluation and he was on carvedilol which was stopped. He is here. Since he is off beta-mino he has not been experiencing any more episode of sinus pauses but I am going to watch the patient for additional 24 hours without any AV angel mino agents on board. He is on oral anticoagulation. Currently he reports no pain in the chest but does have shortness of breath with exertion which is so mewhat chronic. No dizziness or lightheadedness and no heart racing or fluttering and no presyncope or syncope. The examination is remarkable for irregular rhythm with a systolic murmur at the apical area and clear breathing sounds bilaterally and no edema was noted January 15, 2024 The patient was seen and evaluated this morning. He continues to have intermittent episodes of sinus pauses not longer than 4 seconds during the night. His heart rate has been in the 50s. I advised the patient to continue holding any AV angel mino agents and we stopped the carvedilol on Tuesday night. Will watch the patient for additional 24 hours and make a decision regarding the need for pacemaker as well as the need for atrial fibrillation ablation as well. Currently he is not on any AV angel mino agents. He is on oral anticoagulation. Examination is remarkable for irregular rhythm with a so ft systolic murmur and clear breathing sounds bilaterally and no edema was noted. Beside that his noted that he stopped breathing during the night and sleep apnea to be ruled out Assessment Persistent atrial fibrillation with controlled heart rate Multiple episodes of sinus pauses on beta-mino Valvular heart disease Coronary artery disease Obesity Multiple comorbid conditions Plan Continue the current medical regimen Avoid any AV angel mino agents Continue oral anticoagulation Monitor the patient for additional 24 hours Sleep apnea to be ruled out Objective - Vital Signs Vital signs: Vital Signs Temp 97.6 F 01/15/24 07:00 Pulse 50 L 01/15/24 07:00 Resp 17 01/15/24 12:56 BP 130/80 01/15/24 07:00 Pulse Ox 98 01/15/24 07:00 FiO2 Intake & Output 01/14/24 01/15/24 01/15/24 19:59 06:59 18:59 Intake Total 236 Balance 236 Intake: Oral 236 Other: Voiding Method Toilet # Voids - Labs CBC & Chem 7: 01/14/24 05:13 01/13/24 20:02
--- NOTE | 2024-01-15 14:58 | P.PN ---
Subjective Progress Note Date: 01/15/24 Hospital course History of present illness; 68-year-old male with hypertension, dyslipidemia, and history of stent placement in 2022 presents with bradycardia. Patient reports he was sent by his head inspector (Nya) for admission and further evaluation. Patient reports he was wearing a teletypesetter monitor ordered by Dr. Fay for the past 5 days. Patient reports he previously was taking Coreg 3.125 mg twice daily, but received a call from Dr. Fay's office telling him to west e the scheduling to only once per day due to them seeing his heart rate become quite low on the monitor that he was wearing. Yesterday he received a call from the office saying that he should decrease the dose further and only take half of Coreg 3.125 mg once a day. Today patient reports he received a call from Dr. Fay telling him to discontinue Coreg completely and highly consider coming to the ER so that he could be admitted and seen by Dr. Fay. Patient states that when he gets up to use the bathroom he does not have any dizziness. However he states that when he is laying down sometimes he does have dizziness when looking at his iPad. 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 His heart rate this morning in the 50s. 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 twice daily. Patient will need outpatient sleep study to rule out sleep apnea TSH reviewed and within normal limits Chronic conditions #Hyperlipidemia: Continue home Lipitor 80 mg p.o. at bedtime #Hypertension Continue to monitor #Vitamin D deficiency Resume home medication #Obesity #History of coronary stent placement DVT prophylaxis: Eliquis Objective - Vital Signs Vital signs: Vital Signs Temp 97.5 F L 01/15/24 14:27 Pulse 76 01/15/24 14:27 Resp 17 01/15/24 14:27 BP 117/76 01/15/24 14:27 Pulse Ox 100 01/15/24 14:27 FiO2 Intake & Output 01/14/24 01/15/24 01/15/24 19:59 06:59 18:59 Intake Total 236 Balance 236 Intake: Oral 236 Other: Voiding Method Toilet # Voids - Labs CBC & Chem 7: 01/14/24 05:13 01/13/24 20:02
[2024-01-15 23:30] LABS: Glucose,Whole Blood 112 mg/dL (70-110)
--- NOTE | 2024-01-16 12:35 | P.PN ---
Subjective Progress Note Date: 01/16/24 68 year old M with PMH of HTN, HLD, CAD with stent placement presents to the ED with bradycardia. Sent by Sample Distributor Dr. Fay. Patient reports he was wearing a media monitor ordered by Dr. Fay for the past 5 days. Previously taking Coreg 3.125 mg twice daily, but received a call from Dr. Fay's office telling him to change the scheduling to only once per day due to bradycardia. Yesterday he received a call from the office saying that he should decrease the dose further and only take half of Coreg 3.125 mg once a day. Today patient reports he received a call from Dr. Fay telling him to discontinue Coreg completely and highly consider coming to the ER so that he could be admitted and seen by Dr. Fay. In the ED he underwent extensive evaluation. BP 121/82, HR 68, T 97.8F, RR 18, 97% on RA. CBC, Coag panel, CMP significant for Cl 112, BUN 29, Cr 1.38, glu 131. Troponin < 0.012 x 3. TSH 1.88. Mag 1.9. UA neg. UDS neg. EKG A- Fib with SVR of 53. Patient admitted for further workup and management. Cardiology consulted, Coreg held, advised rule out sleep apnea in the outpatient setting. 01/15 Patient was seen and examined. No complaints. HR lows of 40 on telemetry. EKG done today shows A Fib HR of 66. General: non toxic, no distress, appears at stated age Derm: warm, dry Head: atraumatic, normocephalic, symmetric Eyes: EOMI, no lid lag, anicteric sclera Mouth: no lip lesion, mucus membranes moist Cardiovascular: S1S2 irreg mook, no murmur Lungs: Clear to auscultation bilaterally, no rhonchi, no rales , no accessory muscle use Ext: no gross muscle atrophy, no edema, no contractures Neuro: no focal neuro deficits Psych: Alert, oriented, appropriate affect Based on my assessment of this patient, this patient meets a high complexity level of care. AFib with SVR: TSH wnl. Hold AV angel blockers. Eliquis 5 mg PO BID for AC. Telemetry monitoring. Cardiology on board. CAD with stent placement: Lipitor as below. Patient would benefit from ASA, defer decision to Cardiology. Hold beta mino due to severe bradycardia. HLD: Lipitor 80 mg PO QHS. CODE STATUS: FULL CODE. DVT Prophylaxis: Eliquis GI Prophylaxis: Designated medical POA if patient is not able to make medical decisions for themselves: I have reviewed the following incident response consultant notes: I have reviewed the results of the following tests: I have ordered the following tests: I have discussed the care of this patient with the following independent historian: RN, I have independently interpreted the following test below: EKG I have discussed the management of this patient with the following physician: Objective - Vital Signs Vital signs: Vital Signs Temp 97.7 F 01/16/24 03:21 Pulse 78 01/16/24 03:21 Resp 16 01/16/24 03:21 BP 143/103 01/16/24 03:21 Pulse Ox 97 01/16/24 03:21 FiO2 Intake & Output 01/15/24 01/16/24 01/16/24 18:59 06:59 18:59 Intake Total 472 Balance 472 Weight 128.9 kg Intake: Oral 472 Other: Voiding Method Toilet # Voids 3 2 - Labs CBC & Chem 7: 01/14/24 05:13 01/13/24 20:02 Labs: Abnormal Lab Results - Last 24 Hours (Table) 01/15/24 Range/Units 23:28 POC Glucose (mg/dL) 112 H (70-110) mg/dL
--- NOTE | 2024-01-16 15:13 | P.PN ---
Subjective Progress Note Date: 01/16/24 This is a 68-year-old gentleman who is known to our service from before with a past medical history significant for CAD with a prior stenting of the LCx as well as persistent atrial fibrillation as well as hypertension and dyslipidemia and valvular heart disease/mitral regurgitation was called to come to the emergency department yesterday for further evaluation of bradycardia. He was wearing an event monitor as an outpatient and he did have multiple episodes of sinus pauses around 4 seconds but mostly nocturnal except for last night around 3 PM he did have an episode of sinus pause lasted for about 4.5 seconds. He was asymptomatic but he was advised to go to the emergency department for further evaluation and he was on carvedilol which was stopped. He is here. Since he is off beta-mino he has not been experiencing any more episode of sinus pauses but I am going to watch the patient for additional 24 hours without any AV angel mino agents on board. He is on oral anticoagulation. Currently he reports no pain in the chest but does have shortness of breath with exertion which is so mewhat chronic. No dizziness or lightheadedness and no heart racing or fluttering and no presyncope or syncope. The examination is remarkable for irregular rhythm with a systolic murmur at the apical area and clear breathing sounds bilaterally and no edema was noted January 15, 2024 The patient was seen and evaluated this morning. He continues to have intermittent episodes of sinus pauses not longer than 4 seconds during the night. His heart rate has been in the 50s. I advised the patient to continue holding any AV angel mino agents and we stopped the carvedilol on Tuesday night. Will watch the patient for additional 24 hours and make a decision regarding the need for pacemaker as well as the need for atrial fibrillation ablation as well. Currently he is not on any AV angel mino agents. He is on oral anticoagulation. Examination is remarkable for irregular rhythm with a so ft systolic murmur and clear breathing sounds bilaterally and no edema was noted. Beside that his noted that he stopped breathing during the night and sleep apnea to be ruled out January 16, 2024 Patient is seen and examined at bedside this a.m. After stopping his carvedilol patient's resting heart rate is ranging around 50 bpm. His heart rate goes up to 80 bpm when he starts walking. He denies having any lightheadedness or dizziness. On reviewing all the alarms in the telemetry, his longest pause has been around 2.4 seconds even when the patient is awake. He denies smoking, recreational drug use marijuana use. He does report chewing tobacco on a regular basis. He denies any heavy alcohol use. He denies any excessive caffeine use. On exam S1-S2 is audible, irregularly irregular pulse, mild systolic murmur audible Lungs are clear to auscultate with no significant crackles wheezing or rhonchi No significant swelling in bilateral lower extremity Assessment Persistent atrial fibrillation with controlled heart rate. Cardioversion in October 2023, with symptomatic improvement. Relapse after 1 week. Multiple episodes of sinus pauses of 4 seconds on event monitor. Atrial fibrillation with slow ventricular response Valvular heart disease, suspect bicuspid aortic valve with mild stenosis. Coronary artery disease status post PCI Obesity Multiple comorbid conditions Pertinent labs TSH 1.8, creatinine 1.3, Plan For patient's low heart rate, I would recommend not continuing any AV angel blocking agents for this patient. Plan for cardioversion with Dr. Fay tomorrow. After cardioversion see the heart rate trends. Recommend picking up a 7-day event monitor from the cardiology office to evaluate the heart rate trends after cardioversion. Recommend early outpatient follow-up with Dr. Price to set up A-fib ablation. Objective - Vital Signs Vital signs: Vital Signs Temp 97.7 F 01/16/24 12:00 Pulse 42 L 01/16/24 12:00 Resp 18 01/16/24 12:00 BP 141/100 01/16/24 12:00 Pulse Ox 98 01/16/24 12:00 FiO2 Intake & Output 01/15/24 01/16/24 01/16/24 18:59 06:59 18:59 Intake Total 472 Balance 472 Weight 128.9 kg Intake: Oral 472 Other: Voiding Method Toilet Toilet # Voids 3 2 - Labs CBC & Chem 7: 01/14/24 05:13 01/13/24 20:02 Labs: Abnormal Lab Results - Last 24 Hours (Table) 01/15/24 Range/Units 23:28 POC Glucose (mg/dL) 112 H (70-110) mg/dL
[2024-01-16] MEDS: LOSARTAN 25 MG TAB PO SCH (15:29)
[2024-01-16] MEDS: SODIUM CHLORIDE 0.9% 1,000 ML IV SCH (16:16)
[2024-01-16] MEDS: ATORVASTATIN 40 MG TAB PO SCH (20:02)
[2024-01-17 06:21] LABS: Basophils % (A) 0 %; Eosinophils # (A) 0.2 k/uL (0-0.7); Eosinophils % (A) 2 %; HCT 46.2 % (39.0-53.0); Lymphocytes # (A) 1.3 k/uL (1.0-4.8); Lymphocytes % (A) 18 %; MCH 30.8 pg (25.0-35.0); MCHC 32.4 g/dL (31.0-37.0); MCV 94.9 fL (80.0-100.0); Mean Platelet Volume 8.7; Monocytes # (A) 0.6 k/uL (0-1.0); Monocytes % (A) 9 %; Neutrophils % (A) 69 %; Platelet Count 167 k/uL (150-450); RBC 4.87 m/uL (4.30-5.90); RDW 13.4 % (11.5-15.5); WBC 7.3 k/uL (3.8-10.6)
[2024-01-17 06:35] LABS: African American GFR (CKD) 57 (>60 ml/min/1.73 sqM); Anion Gap 2 mmol/L; Blood Urea Nitrogen 24 mg/dL (9-20); Calcium 8.7 mg/dL (8.4-10.2); Carbon Dioxide 29 mmol/L (22-30); Chloride 107 mmol/L (98-107); Glucose 103 mg/dL (74-99); Magnesium 1.8 mg/dL (1.6-2.3); Non-African American GFR(CKD) 50 (>60 ml/min/1.73 sqM); Potassium 4.3 mmol/L (3.5-5.1); Sodium 138 mmol/L (137-145)
[2024-01-17 06:36] LABS: Partial Thromboplastin Time 25.2 sec (22.0-30.0); Prothrombin Time 11.3 sec (10.0-12.5)
[2024-01-17] MEDS: ASPIRIN 81 MG PO SCH (08:24)
[2024-01-17] MEDS: LACTATED RINGERS 1,000 ML IV SCH (11:38)
--- NOTE | 2024-01-17 12:09 | P.PN ---
Subjective Progress Note Date: 01/17/24 68 year old M with PMH of HTN, HLD, CAD with stent placement presents to the ED with bradycardia. Sent by Planning Coordinator Dr. Fay. Patient reports he was wearing a blockmason ordered by Dr. Fay for the past 5 days. Previously taking Coreg 3.125 mg twice daily, but received a call from Dr. Fay's office telling him to change the scheduling to only once per day due to bradycardia. Yesterday he received a call from the office saying that he should decrease the dose further and only take half of Coreg 3.125 mg once a day. Today patient reports he received a call from Dr. Fay telling him to discontinue Coreg completely and highly consider coming to the ER so that he could be admitted and seen by Dr. Fay. In the ED he underwent extensive evaluation. BP 121/82, HR 68, T 97.8F, RR 18, 97% on RA. CBC, Coag panel, CMP significant for Cl 112, BUN 29, Cr 1.38, glu 131. Troponin < 0.012 x 3. TSH 1.88. Mag 1.9. UA neg. UDS neg. EKG A- Fib with SVR of 53. Patient admitted for further workup and management. Cardiology consulted, Coreg held, advised rule out sleep apnea in the outpatient setting. 01/16 Patient was seen and examined. No complaints. HR in the 50s on telemetry. Plans for cardioversion tomorrow. Refusing ASA states excessive bleeding with combination of ASA and Eliquis. CBC and CMP significant for BUN 24, Cr 1.44, glu 103. Mag 1.8. General: non toxic, no distress, appears at stated age Derm: warm, dry Head: atraumatic, normocephalic, symmetric Eyes: EOMI, no lid lag, anicteric sclera Mouth: no lip lesion, mucus membranes moist Cardiovascular: S1S2 irreg mook, no murmur Lungs: Clear to auscultation bilaterally, no rhonchi, no rales , no accessory muscle use Ext: no gross muscle atrophy, no edema, no contractures Neuro: no focal neuro deficits Psych: Alert, oriented, appropriate affect Based on my assessment of this patient, this patient meets a high complexity l evel of care. AFib with SVR: TSH wnl. Hold AV angel blockers. Eliquis 5 mg PO BID for AC. Telemetry monitoring. Plans for cardioversion today. Cardiology on board. CAD with stent placement: Lipitor as below. Patient would benefit from ASA, defer decision to Cardiology. Hold beta mino due to severe bradycardia. HLD: Lipitor 80 mg PO QHS. CODE STATUS: FULL CODE. DVT Prophylaxis: Eliquis GI Prophylaxis: Designated medical POA if patient is not able to make medical decisions for themselves: I have reviewed the following animal nutrition consultant notes: Cardiology. I have reviewed the results of the following tests: CBC, BMP. Mag. I have ordered the following tests: I have discussed the care of this patient with the following independent historian: . I have independently interpreted the following test below: I have discussed the management of this patient with the following physician: Objective - Vital Signs Vital signs: Vital Signs Temp 97.6 F 01/17/24 06:47 Pulse 48 L 01/17/24 08:29 Resp 18 01/17/24 06:47 BP 124/77 01/17/24 06:47 Pulse Ox 99 01/17/24 06:47 FiO2 Intake & Output 01/16/24 01/17/24 01/17/24 18:59 06:59 18:59 Intake Total 600 Balance 600 Weight 129.1 kg Intake: Oral 600 Other: Voiding Method Toilet Toilet Toilet # Voids 2 - Labs CBC & Chem 7: 01/17/24 06:10 01/17/24 06:10 Labs: Abnormal Lab Results - Last 24 Hours (Table) 01/17/24 Range/Units 06:10 BUN 24 H (9-20) mg/dL Creatinine 1.44 H (0.66-1.25) mg/dL Glucose 103 H (74-99) mg/dL
[2024-01-17] MEDS: MAGNESIUM SULFATE-D5W PMX 1 GM in DEXTROSE/WATER 1 100ML.BAG IVPB SCH (16:52)
--- NOTE | 2024-01-17 20:19 | P.PN ---
Subjective Progress Note Date: 01/17/24 This is a 68-year-old gentleman who is known to our service from before with a past medical history significant for CAD with a prior stenting of the LCx as well as persistent atrial fibrillation as well as hypertension and dyslipidemia and valvular heart disease/mitral regurgitation was called to come to the emergency department yesterday for further evaluation of bradycardia. He was wearing an event monitor as an outpatient and he did have multiple episodes of sinus pauses around 4 seconds but mostly nocturnal except for last night around 3 PM he did have an episode of sinus pause lasted for about 4.5 seconds. He was asymptomatic but he was advised to go to the emergency department for further evaluation and he was on carvedilol which was stopped. He is here. Since he is off beta-mino he has not been experiencing any more episode of sinus pauses but I am going to watch the patient for additional 24 hours without any AV angel mino agents on board. He is on oral anticoagulation. Currently he reports no pain in the chest but does have shortness of breath with exertion which is so mewhat chronic. No dizziness or lightheadedness and no heart racing or fluttering and no presyncope or syncope. The examination is remarkable for irregular rhythm with a systolic murmur at the apical area and clear breathing sounds bilaterally and no edema was noted January 15, 2024 The patient was seen and evaluated this morning. He continues to have intermittent episodes of sinus pauses not longer than 4 seconds during the night. His heart rate has been in the 50s. I advised the patient to continue holding any AV angel mino agents and we stopped the carvedilol on Tuesday night. Will watch the patient for additional 24 hours and make a decision regarding the need for pacemaker as well as the need for atrial fibrillation ablation as well. Currently he is not on any AV angel mino agents. He is on oral anticoagulation. Examination is remarkable for irregular rhythm with a so ft systolic murmur and clear breathing sounds bilaterally and no edema was noted. Beside that his noted that he stopped breathing during the night and sleep apnea to be ruled out January 16, 2024 Patient is seen and examined at bedside this a.m. After stopping his carvedilol patient's resting heart rate is ranging around 50 bpm. His heart rate goes up to 80 bpm when he starts walking. He denies having any lightheadedness or dizziness. On reviewing all the alarms in the telemetry, his longest pause has been around 2.4 seconds even when the patient is awake. He denies smoking, recreational drug use marijuana use. He does report chewing tobacco on a regular basis. He denies any heavy alcohol use. He denies any excessive caffeine use. January 17, 2024 Patient is seen and examined at bedside this a.m. patient continues to be in slow ventricular response with atrial fibrillation as baseline rhythm. Resting heart rate around 50 bpm. No further pauses more than 2 seconds overnight. On exam S1-S2 is audible, irregularly irregular pulse, mild systolic murmur audible Lungs are clear to auscultate with no significant crackles wheezing or rhonchi No significant swelling in bilateral lower extremity Assessment Persistent atrial fibrillation with controlled heart rate. Cardioversion in October 2023, with symptomatic improvement. Relapse after 1 we ek. Multiple episodes of sinus pauses of 4 seconds on event monitor. Atrial fibrillation with slow ventricular response Valvular heart disease, suspect bicuspid aortic valve with mild stenosis. Coronary artery disease status post PCI Obesity Multiple comorbid conditions Pertinent labs TSH 1.8, creatinine 1.3, Plan For patient's low heart rate, I would recommend not continuing any AV angel blocking agents for this patient. Plan for cardioversion with Dr. Fay tomorrow. After cardioversion see the heart rate trends. Recommend picking up a 7-day event monitor from the cardiology office to evaluate the heart rate trends after cardioversion. Recommend early outpatient follow-up with Dr. Price to set up A-fib ablation. Objective - Vital Signs Vital signs: Vital Signs Temp 97.8 F 01/17/24 20:11 Pulse 65 01/17/24 20:11 Resp 17 01/17/24 20:11 BP 131/70 01/17/24 20:11 Pulse Ox 98 01/17/24 20:11 FiO2 Intake & Output 01/17/24 01/17/24 01/18/24 06:59 18:59 06:59 Intake Total 956 Balance 956 Weight 129.1 kg Intake: Oral 956 Other: Voiding Method Toilet Toilet # Voids 2 - Labs CBC & Chem 7: 01/17/24 06:10 01/17/24 06:10 Labs: Abnormal Lab Results - Last 24 Hours (Table) 01/17/24 Range/Units 06:10 BUN 24 H (9-20) mg/dL Creatinine 1.44 H (0.66-1.25) mg/dL Glucose 103 H (74-99) mg/dL
[2024-01-18] MEDS: MAGNESIUM SULFATE-D5W PMX 1 GM in DEXTROSE/WATER 1 100ML.BAG IVPB SCH (05:07)
[2024-01-18] MEDS ORDERED: PROPOFOL 10 MG/ML 20 ML VIAL IV ONE (07:30)
[2024-01-18] MEDS: IV FLUID CONTINUATION 1,000 ML IV ONE (07:30)
[2024-01-18] MEDS ORDERED: LIDOCAINE 1% INJ 10MG/ML (20 ML MDV) ONE (07:30)
[2024-01-18 09:20] VITALS: TEMP 97.6
--- NOTE | 2024-01-18 09:52 | P.PCN ---
Date of Procedure: 01/18/24 Operative Findings: Cardioversion Report Performing physician Gen Davis M.D. Procedure performed Successful cardioversion of atrial fibrillation to normal sinus mechanism using 200 J at first attempt Indication Symptomatic atrial fibrillation Complication None Level of sedation The procedure was performed under deep sedation using propofol with MACHINE III COREMAKER in the room Procedure description After obtaining an informed consent the patient was brought to the recovery room. Sedation was introduced using propofol with MACHINE III COREMAKER in the room. Subsequently the patient cardioverted from atrial fibrillation to normal sinus mechanism using 200 J and first attempt Conclusion Successful cardioversion of atrial fibrillation to normal sinus mechanism using 200 J Postprocedure management Continue the current medical regimen Continue oral anticoagulation Follow-up with the patient
[2024-01-18 11:25] VITALS: BP 139/73; PULSE 72; RESP 16
--- NOTE | 2024-01-18 12:16 | P.DS ---
Providers Date of admission: 01/13/24 20:33 Expected date of discharge: 01/18/24 Attending physician: Javy Sandhu MD Consults: 01/13/24 20:31 Consult Physician Routine Consulting Provider: Gen Davis Consult Reason/Comments: known Do you want consulting provider notified?: Yes Primary care physician: Hair Shelleykaden [facility] Course: 68 year old M with PMH of HTN, HLD, CAD with stent placement presents to the ED with bradycardia. Sent by [facility] Dr. Fay. Patient reports he was wearing a monitoring analyst ordered by Dr. Fay for the past 5 days. Previously taking Coreg 3.125 mg twice daily, but received a call from Dr. Fay's office telling him to change the scheduling to only once per day due to bradycardia. Yesterday he received a call from the office saying that he should decrease the dose further and only take half of Coreg 3.125 mg once a day. Today patient reports he received a call from Dr. Fay telling him to discontinue Coreg completely and highly consider coming to the ER so that he could be admitted and seen by Dr. Fay. In the ED he underwent extensive evaluation. BP 121/82, HR 68, T 97.8F, RR 18, 97% on RA. CBC, Coag panel, CMP significant for Cl 112, BUN 29, Cr 1.38, glu 131. Troponin < 0.012 x 3. TSH 1.88. Mag 1.9. UA neg. UDS neg. EKG A- Fib with SVR of 53. Patient admitted for further workup and management. Cardiology consulted, Coreg held, advised rule out sleep apnea in the outpatient setting. 01/16 Patient was seen and examined. No complaints. HR in the 50s on telemetry. Plans for cardioversion tomorrow. Refusing ASA states excessive bleeding with combination of ASA and Eliquis. CBC and CMP significant for BUN 24, Cr 1.44, glu 103. Mag 1.8. 01/17 Patient was seen and examined. Underwent cardioversion this morning. HR in the 70s. Still appears to have bouts of AFib on telemetry. Discussed with Dr. Lockwood at bedside, cleared for discharge, stop Coreg, outpatient follow up with Dr. Fay to arrange for possible ablation. Follow up with PCP Dr. Rogers to arrange for sleep study. Patient verbalized understanding of the plan. General: non toxic, no distress, appears at stated age Derm: warm, dry Head: atraumatic, normocephalic, symmetric Eyes: EOMI, no lid lag, anicteric sclera Mouth: no lip lesion, mucus membranes moist Cardiovascular: S1S2 reg, systolic murmur Lungs: Clear to auscultation bilaterally, no rhonchi, no rales , no accessory muscle use Ext: no gross muscle atrophy, no edema, no contractures Neuro: no focal neuro deficits Psych: Alert, oriented, appropriate affect Discharge Diagnosis: AFib with SVR CAD with stent placement HLD CKD stage II This complex discharge took 35 minutes to complete. Patient Condition at Discharge: Stable Plan - Discharge Summary New Discharge Prescriptions: New Losartan [Cozaar] 25 mg PO DAILY #180 tab Atorvastatin [Lipitor] 40 mg PO HS #180 tab Continue Cholecalciferol [Vitamin D3 (125 Mcg = 5000 Iu)] 125 mcg PO DAILY Apixaban [Eliquis] 5 mg PO BID Discontinued Atorvastatin [Lipitor] 80 mg PO HS Discharge Medication List Apixaban [Eliquis] 5 mg PO BID 01/13/24 [History] Cholecalciferol [Vitamin D3 (125 Mcg = 5000 Iu)] 125 mcg PO DAILY 01/13/24 [History] Atorvastatin [Lipitor] 40 mg PO HS #180 tab 01/18/24 [Rx] Losartan [Cozaar] 25 mg PO DAILY #180 tab 01/18/24 [Rx] Follow up Appointment(s)/Referral(s): Gen Davis MD [STAFF PHYSICIAN] - 1 Week Hiar Rogers MD [Primary Care Provider] - 1-2 days Patient Instructions/Handouts: Losartan (By mouth) Discharge Disposition: HOME SELF-CARE
--- NOTE | 2024-01-18 12:57 | P.PN ---
Subjective Progress Note Date: 01/18/24 This is a 68-year-old gentleman who is known to our service from before with a past medical history significant for CAD with a prior stenting of the LCx as well as persistent atrial fibrillation as well as hypertension and dyslipidemia and valvular heart disease/mitral regurgitation was called to come to the emergency department yesterday for further evaluation of bradycardia. He was wearing an event monitor as an outpatient and he did have multiple episodes of sinus pauses around 4 seconds but mostly nocturnal except for last night around 3 PM he did have an episode of sinus pause lasted for about 4.5 seconds. He was asymptomatic but he was advised to go to the emergency department for further evaluation and he was on carvedilol which was stopped. He is here. Since he is off beta-mino he has not been experiencing any more episode of sinus pauses but I am going to watch the patient for additional 24 hours without any AV angel mino agents on board. He is on oral anticoagulation. Currently he reports no pain in the chest but does have shortness of breath with exertion which is so mewhat chronic. No dizziness or lightheadedness and no heart racing or fluttering and no presyncope or syncope. The examination is remarkable for irregular rhythm with a systolic murmur at the apical area and clear breathing sounds bilaterally and no edema was noted January 15, 2024 The patient was seen and evaluated this morning. He continues to have intermittent episodes of sinus pauses not longer than 4 seconds during the night. His heart rate has been in the 50s. I advised the patient to continue holding any AV angel mino agents and we stopped the carvedilol on Tuesday night. Will watch the patient for additional 24 hours and make a decision regarding the need for pacemaker as well as the need for atrial fibrillation ablation as well. Currently he is not on any AV anegl mino agents. He is on oral anticoagulation. Examination is remarkable for irregular rhythm with a so ft systolic murmur and clear breathing sounds bilaterally and no edema was noted. Beside that his noted that he stopped breathing during the night and sleep apnea to be ruled out January 16, 2024 Patient is seen and examined at bedside this a.m. After stopping his carvedilol patient's resting heart rate is ranging around 50 bpm. His heart rate goes up to 80 bpm when he starts walking. He denies having any lightheadedness or dizziness. On reviewing all the alarms in the telemetry, his longest pause has been around 2.4 seconds even when the patient is awake. He denies smoking, recreational drug use marijuana use. He does report chewing tobacco on a regular basis. He denies any heavy alcohol use. He denies any excessive caffeine use. January 17, 2024 Patient is seen and examined at bedside this a.m. patient continues to be in slow ventricular response with atrial fibrillation as baseline rhythm. Resting heart rate around 50 bpm. No further pauses more than 2 seconds overnight. 01/17 And underwent successful cardioversion this morning with Dr. Davis. Patient appears to be going in and out of atrial fibrillation on EKG and telemetry. Patient denies having any chest pain, no shortness of breath. Blood pressure 121/84, heart rate 73, pulse ox 97% on room air. On exam S1-S2 is audible, irregularly irregular pulse, mild systolic murmur audible Lungs are clear to auscultate with no significant crackles wheezing or rhonchi No significant swelling in bilateral lower extremity Assessment Persistent atrial fibrillation with controlled heart rate status post cardioversion. Cardioversion in October 2023, with symptomatic improvement. Relapse after 1 week. Multiple episodes of sinus pauses of 4 seconds on event monitor. Atrial fibrillation with slow ventricular response Valvular heart disease, suspect bicuspid aortic valve with mild stenosis. Coronary artery disease status post PCI Obesity Multiple comorbid conditions Pertinent labs TSH 1.8, creatinine 1.3, Plan For patient's low heart rate, I would recommend not continuing any AV angel blocking agents for this patient. Continue patient on Eliquis 5 mg twice daily Continue patient on losartan 25 mg daily and atorvastatin 40 mg at bedtime Patient is cleared for discharge from cardiology will follow-up with Dr. Davis in 1 to 2 weeks. Recommend early outpatient follow-up with Dr. Price to set up A-fib ablation. Objective - Vital Signs Vital signs: Vital Signs Temp 97.6 F 01/18/24 09:00 Pulse 72 01/18/24 11:24 Resp 16 01/18/24 11:24 BP 139/73 01/18/24 11:24 Pulse Ox 98 01/18/24 11:24 FiO2 Intake & Output 01/17/24 01/18/24 01/18/24 18:59 06:59 18:59 Intake Total 956 480 940 Balance 956 480 940 Weight 128.6 kg Intake: IV 400 Oral 437 317 885 Other: Voiding Method Toilet Toilet Toilet # Voids 2 2 1 - Labs CBC & Chem 7: 01/17/24 06:10 01/17/24 06:10
== END 2024-01-18 13:18 | disposition home or self-care (01) | DRG 310 ==
LOC: EC 19:33 → 6NMEDSUR 20:33 → OBSVTOIN 20:33 → 6NMEDSUR 20:57 → 2SICU 01-15 23:34 → 3SCARD 01-16 15:52
PROVIDERS: ADMIT Internal Medicine; ATTEND Internal Medicine
PROC: 5A2204Z Restoration of Cardiac Rhythm, Single (ICD-10-PCS; principal; 2024-01-18 07:30)
DX: I48.19 Other persistent atrial fibrillation (principal); E55.9 Vitamin D deficiency, unspecified; E78.5 Hyperlipidemia, unspecified; I12.9 Hypertensive chronic kidney disease with stage 1 through stage 4 chronic kidney disease, or unspecified chronic kidney disease; I25.10 Atherosclerotic heart disease of native coronary artery without angina pectoris; N18.31 Chronic kidney disease, stage 3a; E66.9 Obesity, unspecified; F17.220 Nicotine dependence, chewing tobacco, uncomplicated; I08.0 Rheumatic disorders of both mitral and aortic valves; I25.2 Old myocardial infarction; Z96.651 Presence of right artificial knee joint; Z96.643 Presence of artificial hip joint, bilateral; Z79.01 Long term (current) use of anticoagulants; Z79.899 Other long term (current) drug therapy; Z95.5 Presence of coronary angioplasty implant and graft; Z86.718 Personal history of other venous thrombosis and embolism; Z88.5 Allergy status to narcotic agent; Z88.1 Allergy status to other antibiotic agents; Z91.040 Latex allergy status; Z68.31 Body mass index [BMI] 31.0-31.9, adult
CPT/HCPCS: 36415; 80048; 80053; 80306; 81003; 83735; 84443; 84484; 85025; 85610; 85730; 92960; 93005; 96360; 99285

== ENCOUNTER 2024-05-15 06:55 | Emergency (ER) | payer MEDICARE ==
--- NOTE | 2024-05-15 07:31 | ED ---
General Adult HPI - General Chief complaint: Back Pain/Injury Stated complaint: Back Pain Time Seen by Provider: 05/15/24 06:58 Source: patient, RN notes reviewed Mode of arrival: EMS Limitations: no limitations - History of Present Illness Initial comments: 69-year-old male presents to the emergency department for evaluation of mid back pain radiating down his legs and up his arms. Patient states this started 2 days ago. He notes that it comes in waves. He reports it as a sharp shooting pain. He states that it lasted for around 30 seconds each time. He reports that when the pain comes he gets nauseous. He took a Tylenol yesterday evening without relief. He also used a hot pad which helped somewhat. He denies any loss of bowel or bladder function, saddle anesthesia. Patient is on Eliquis for A-fib. He has not missed any doses of his medications. Denies any trauma. - Related Data Home Medications Medication Instructions Recorded Confirmed Apixaban [Eliquis] 5 mg PO BID 01/13/24 05/17/24 Cholecalciferol [Vitamin D3 (125 125 mcg PO DAILY 01/13/24 05/17/24 Mcg = 5000 Iu)] Losartan [Cozaar] 12.5 mg PO DAILY 05/17/24 05/17/24 Mv-Min/Folic/K1/Lycopen/Lutein 1 tab PO BID 05/17/24 05/17/24 [Centrum Silver Men Tablet] Omeprazole 40 mg PO DIRECTED 05/17/24 05/17/24 predniSONE 50 mg PO DIRECTED 05/17/24 05/17/24 Previous Rx's Medication Instructions Recorded Atorvastatin [Lipitor] 40 mg PO HS #180 tab 01/18/24 Acetaminophen-Codeine 300-30mg 1 tab PO Q4H PRN 3 Days #18 tablet 05/15/24 [Tylenol w/codeine #3] Allergies Allergy/AdvReac Type Severity Reaction Status Date / Time hydrocodone Allergy CONFUSION/H Verified 05/17/24 11:19 ALLUCINATIO NS morphine Allergy Rash/Hives Verified 05/17/24 11:19 cephalexin monohydrate AdvReac Nausea & Verified 05/17/24 11:19 [From Keflex] Vomiting & Diarrhea clindamycin AdvReac Nausea & Verified 05/17/24 11:19 Vomiting & Diarrhea latex AdvReac Rash/Hives Verified 05/17/24 11:19 Review of Systems ROS Statement: Those systems with pertinent positive or pertinent negative responses have been documented in the HPI. ROS Other: All systems not noted in ROS Statement are negative. Past Medical History Past Medical History: Atrial Fibrillation, Deep Vein Thrombosis (DVT), Myocardial Infarction (MD) Additional Past Medical History / Comment(s): vitamin D3 deficient, DVT LEFT LEG, right leg x 2. slivers to both feet and then removed 03/24/23, was on abx and was allergic and stopped taking it and unsure what med is , mi x6 05/06. chronic kidney disease 3A no meds or dialysis. Liver enzymes elevated rechecking after colonoscopy Last Myocardial Infarction Date:: 05/06 History of Any Multi-Drug Resistant Organisms: C-DIFF Date of last positivie culture/infection: c-diff 2012 MDRO Source:: stool Past Surgical History: Heart Catheterization, Heart Catheterization With Stent, Joint Replacement, Orthopedic Surgery Additional Past Surgical History / Comment(s): right knee replacement, bilateral hip surgery, heart cath, varicose vein removal. Past Anesthesia/Blood Transfusion Reactions: No Reported Reaction Additional Past Anesthesia/Blood Transfusion Reaction / Comment(s): no blood transfusion Date of Last Stent Placement:: 04/27/22 Past Psychological History: No Psychological Hx Reported Smoking Status: Current some day smoker Past Alcohol Use History: None Reported Past Drug Use History: None Reported - Past Family History Father Family Medical History: Cancer Brother(s) Family Medical History: Cancer Additional Family Medical History / Comment(s): prostate Mother Additional Family Medical History / Comment(s): Mother was exposed to lead paint during General Exam Limitations: no limitations General appearance: alert, in no apparent distress Head exam: Present: atraumatic, normocephalic, normal inspection Eye exam: Present: normal appearance, PERRL, EOMI. Absent: scleral icterus, conjunctival injection, periorbital swelling ENT exam: Present: normal exam, mucous membranes moist Respiratory exam: Present: normal lung sounds bilaterally. Absent: respiratory distress, wheezes, rales, rhonchi, stridor Cardiovascular Exam: Present: regular rate, normal rhythm, normal heart sounds. Absent: systolic murmur, diastolic murmur, rubs, gallop, clicks GI/Abdominal exam: Present: soft. Absent: distended, tenderness, guarding, rebound, rigid Extremities exam: Present: normal inspection, full ROM, normal capillary refill. Absent: tenderness, pedal edema, joint swelling, calf tenderness Back exam: Present: normal inspection, full ROM. Absent: tenderness Neurological exam: Present: alert, oriented X3 Psychiatric exam: Present: normal affect, normal mood Skin exam: Present: warm, dry, intact, normal color. Absent: rash Course Vital Signs 05/15/24 05/15/24 05/15/24 06:57 08:56 09:34 Temperature 97.5 F L 98 F Pulse Rate 77 70 Respiratory 17 16 Rate Blood Pressure 153/81 161/92 Blood Pressure 165/89 [Left Arm] Blood Pressure 152/86 [Right Arm] O2 Sat by Pulse 96 99 Oximetry 05/15/24 05/15/24 05/15/24 11:00 12:00 12:32 Temperature 98.1 F 97.9 F 98.2 F Pulse Rate 79 65 67 Respiratory 18 16 20 Rate Blood Pressure 165/111 147/91 148/85 Blood Pressure [Left Arm] Blood Pressure [Right Arm] O2 Sat by Pulse 98 99 96 Oximetry Medical Decision Making - Medical Decision Making Was pt. sent in by a medical professional or institution (, PA, EDITING INTERN, urgent care, hospital, or detention...) When possible be specific @ -No Did you speak to anyone other than the patient for history (EMS, parent, family, police, friend...)? What history was obtained from this source @ -No Did you review nursing and triage notes (agree or disagree)? Why? @ -I reviewed and agree with nursing and triage notes Were old charts reviewed (outside hosp., previous admission, EMS record, old EKG, old radiological studies, urgent care reports/EKG's, detention records)? Report findings @ -No old charts were reviewed Differential Diagnosis (chest pain, altered mental status, abdominal pain women, abdominal pain men, vaginal bleeding, weakness, fever, dyspnea, syncope, headache, dizziness, GI bleed, back pain, seizure, CVA, palpatations, mental hea lth, musculoskeletal)? @ -Differential Back Pain: Strain, zoster, cauda equina syndrome, epidural abscess, vertebral osteomyelitis, discitis, fracture, subluxation, disc herniation, DJD, spinal stenosis, dissection, AAA, pancreatitis, peptic ulcer disease, pyelonephritis, kidney stone, this is not meant to be an all-inclusive list. EKG interpreted by me (3pts min.). @ -EKG at 0813 shows afib rate 70, QRS 92, QT/QTc 406/426 X-rays interpreted by me (1pt min.). @ -X-ray of the lumbar spine shows no acute process X-ray of the thoracic spine shows moderate degenerative changes with no acute pr ocess x-ray of the chest shows no acute process CT interpreted by me (1pt min.). @ -N CT of the aorta shows no evidence for aortic dissection, aneurysm, occlusion chronic changes noted in the spine U/S interpreted by me (1pt. min.). @ -None done What testing was considered but not performed or refused? (CT, X-rays, U/S, labs)? Why? @ -None What meds were considered but not given or refused? Why? @ -None Did you discuss the management of the patient with other professionals (professionals i.e. , PA, EDITING INTERN, lab, RT, psych nurse, social media designer, immigration lawyer, teacher, information assurance officer, community case manager)? Give summary @ -No Was smoking cessation discussed for >3mins.? @ -No Was critical care preformed (if so, how long)? @ -No Were there social determinants of health that impacted care today? How? (H omelessness, low income, unemployed, alcoholism, drug addiction, transportation, low edu. Level, literacy, decrease access to med. care, [facility], rehab)? @ -No Was there de-escalation of care discussed even if they declined (Discuss DNR or withdrawal of care, Hospice)? DNR status @ -No What co-morbidities impacted this encounter? (DM, HTN, Smoking, COPD, CAD, Cancer, CVA, ARF, Chemo, Hep., AIDS, mental health diagnosis, sleep apnea, morbid obesity)? @ -None Was patient admitted / discharged? Hospital course, mention meds given and route, prescriptions, significant lab abnormalities, going to OR and other pertinent info. @ -Discharge. Patient presented the emergency department for evaluation of back pain. Laboratory studies obtained revealing no significant leukocytosis, hemoglobin 15.8; CMP nonactionable. X-rays of the lumbar and thoracic spine were obtained revealing no acute process. Based on the clinical presentation and nature of the back pain a CT of the aorta was obtained which shows no evidence of aortic dissection, aneurysm, occlusion. Patient was provided medi cation for pain control in the ED. He reports improvement in his symptoms. He was advised on these findings. He will be discharged home. He is understanding agreeable with plan. Patient stable at time of discharge. Case discussed with Dr. Fine. Undiagnosed new problem with uncertain prognosis? @ -No Drug Therapy requiring intensive monitoring for toxicity (Heparin, Nitro, Insu rhianna, Cardizem)? @ -No Were any procedures done? @ -No Diagnosis/symptom? @ -Back pain Acute, or Chronic, or Acute on Chronic? @ -Acute Uncomplicated (without systemic symptoms) or Complicated (systemic symptoms)? @ -Acute uncomplicated Side effects of treatment? @ -No Exacerbation, Progression, or Severe Exacerbation? @ -No Poses a threat to life or bodily function? How? (Chest pain, USA, MD, pneumonia, PE, COPD, DKA, ARF, appy, cholecystitis, CVA, Diverticulitis, Homicidal, Suicidal, threat to staff... and all critical care pts) @ -No - Lab Data Result diagrams: 05/15/24 08:13 05/15/24 08:13 Lab Results 05/15/24 05/15/24 05/15/24 Range/Units 08:13 08:13 08:13 WBC 10.8 H (3.8-10.6) k/uL RBC 5.12 (4.30-5.90) m/uL Hgb 15.8 (13.0-17.5) gm/dL Hct 49.2 (39.0-53.0) % MCV 95.9 (80.0-100.0) fL MCH 30.9 (25.0-35.0) pg MCHC 32.2 (31.0-37.0) g/dL RDW 12.8 (11.5-15.5) % Plt Count 195 (150-450) k/uL MPV 8.3 Neutrophils % 82 % Lymphocytes % 9 % Monocytes % 6 % Eosinophils % 1 % Basophils % 0 % Neutrophils # 8.9 H (1.3-7.7) k/uL Lymphocytes # 1.0 (1.0-4.8) k/uL Monocytes # 0.6 (0-1.0) k/uL Eosinophils # 0.1 (0-0.7) k/uL Basophils # 0.0 (0-0.2) k/uL PT 11.0 (10.0-12.5) sec INR 1.0 (<1.2) APTT 37.3 H (22.0-30.0) sec Sodium 140 (137-145) mmol/L Potassium 4.1 (3.5-5.1) mmol/L Chloride 107 (98-107) mmol/L Carbon Dioxide 24 (22-30) mmol/L Anion Gap 9 mmol/L BUN 26 H (9-20) mg/dL Creatinine 1.15 (0.66-1.25) mg/dL Est GFR (CKD-EPI)AfAm 75 (>60 ml/min/1.73 sqM) Est GFR (CKD-EPI)NonAf 65 (>60 ml/min/1.73 sqM) Glucose 110 H (74-99) mg/dL Calcium 9.3 (8.4-10.2) mg/dL Magnesium 1.8 (1.6-2.3) mg/dL Total Bilirubin 1.3 (0.2-1.3) mg/dL AST 32 (17-59) U/L ALT 30 (4-49) U/L Alkaline Phosphatase 93 (38-126) U/L Total Protein 6.8 (6.3-8.2) g/dL Albumin 4.0 (3.5-5.0) g/dL Disposition Clinical Impression: Back pain Disposition: HOME SELF-CARE Condition: Stable Instructions (If sedation given, give patient instructions): Acute Low Back Pain (ED) Additional Instructions: Please follow up with your primary care provider. Return to the emergency department for new or worsening symptoms. Prescriptions: Acetaminophen-Codeine 300-30mg [Tylenol w/codeine #3] 1 tab PO Q4H PRN 3 Days #18 tablet PRN Reason: Pain Is patient prescribed a controlled substance at d/c from ED?: No Referrals: Hair Rogers MD [Primary Care Provider] - 1-2 days
[2024-05-15] MEDS: LIDOCAINE 4% PATCH TOPICAL ONE (07:59)
[2024-05-15] MEDS: ORPHENADRINE 30 MG/ML 2 ML VIAL IM STA (08:08)
--- NOTE | 2024-05-15 08:22 | XR ---
EXAMINATION TYPE: XR chest 2V DATE OF EXAM: 05/15/2024 8:14 AM COMPARISON: CTA chest 06/10/2015 TECHNIQUE: XR chest 2V Frontal and lateral views of the chest. CLINICAL INDICATION:Male, 69 years old with history of pain; FINDINGS: Lungs/Pleura: There is no evidence of pleural effusion, focal consolidation, or pneumothorax. Pulmonary vascularity: Unremarkable. Heart/mediastinum: Cardiomediastinal silhouette is enlarged and stable. Musculoskeletal: Multiple level degenerative disc disease changes seen throughout the spine. No acute osseous abnormality. IMPRESSION: No acute cardiopulmonary disease/process. [facility], , 05/15/2024 8:20 AM
--- NOTE | 2024-05-15 08:26 | XR ---
EXAMINATION TYPE: XR thoracic spine 2V, XR lumbar spine 2 or 3V DATE OF EXAM: 05/15/2024 8:12 AM INDICATION: Patient age:Male; 69 years old; Reason for study: pain; PHH. pain COMPARISON: Chest radiograph 05/15/2024, CTA chest 06/10/2015. TECHNIQUE: Frontal, lateral, and shortness views of the thoracic spine were obtained. Frontal, latera l, and coned in lateral L5-S1 spot views of the lumbar spine were obtained. FINDINGS: There are 5 lumbar type vertebral bodies identified. No evidence of any acute osseous patho logy. Stable Schmorl's involving the superior endplate of the T4 vertebral body. Vertebral body heigh t loss identified. No spondylolisthesis. Levoconvex curvature of the lumbar spine with apex at L3. Mu ltilevel disc space narrowing with endplate sclerosis and anterior osteophytosis of the lower thoraci c and lumbar spine. Multilevel facet arthropathy of the lower lumbar spine. Atherosclerotic calcification of the aorta. IMPRESSION: 1. No acute process. 2. [id number] multilevel degenerative disc disease of the lower thoracic and lumbar spine. 3. Levoscoliotic curvature of the lumbar spine. [facility], , 05/15/2024 8:24 AM
[2024-05-15 08:30] LABS: Basophils % (A) 0 %; Eosinophils # (A) 0.1 k/uL (0-0.7); Eosinophils % (A) 1 %; HCT 49.2 % (39.0-53.0); HGB 15.8 gm/dL (13.0-17.5); Lymphocytes % (A) 9 %; MCH 30.9 pg (25.0-35.0); MCHC 32.2 g/dL (31.0-37.0); MCV 95.9 fL (80.0-100.0); Mean Platelet Volume 8.3; Monocytes # (A) 0.6 k/uL (0-1.0); Monocytes % (A) 6 %; Neutrophils # (A) 8.9 k/uL (1.3-7.7); Neutrophils % (A) 82 %; Platelet Count 195 k/uL (150-450); RBC 5.12 m/uL (4.30-5.90); RDW 12.8 % (11.5-15.5); WBC 10.8 k/uL (3.8-10.6)
[2024-05-15] MEDS: ORPHENADRINE 30 MG/ML 2 ML VIAL IVP STA (08:41)
[2024-05-15 08:43] LABS: Partial Thromboplastin Time 37.3 sec (22.0-30.0)
[2024-05-15 08:51] LABS: ALT 30 U/L (4-49); AST 32 U/L (17-59); African American GFR (CKD) 75 (>60 ml/min/1.73 sqM); Alkaline Phosphatase 93 U/L (38-126); Anion Gap 9 mmol/L; Blood Urea Nitrogen 26 mg/dL (9-20); Calcium 9.3 mg/dL (8.4-10.2); Carbon Dioxide 24 mmol/L (22-30); Chloride 107 mmol/L (98-107); Glucose 110 mg/dL (74-99); Magnesium 1.8 mg/dL (1.6-2.3); Non-African American GFR(CKD) 65 (>60 ml/min/1.73 sqM); Potassium 4.1 mmol/L (3.5-5.1); Sodium 140 mmol/L (137-145); Total Bilirubin 1.3 mg/dL (0.2-1.3); Total Protein 6.8 g/dL (6.3-8.2)
[2024-05-15] MEDS: SODIUM CHLORIDE 0.9% 1,000 ML IV ONE (09:08)
[2024-05-15] MEDS: MORPHINE SULFATE 2 MG/ML SYRINGE IVP ONE (09:36)
[2024-05-15] MEDS: methylPREDNISolone SOD SUCCI 125 MG/2 ML VIAL IV STA (09:58)
[2024-05-15] MEDS: FAMOTIDINE 20 MG/2 ML VIAL IV STA (09:59)
[2024-05-15] MEDS: diphenhydrAMINE 50 MG/ML 1 ML VIAL IVP STA (10:00)
--- NOTE | 2024-05-15 10:08 | CT ---
EXAMINATION TYPE: CT noncontrast chest abdomen pelvis. CT angio thor/abd pel aorta DATE OF EXAM: 05/15/2024 9:42 AM COMPARISON: 06/10/2015 CLINICAL INDICATION: Male, 69 years old with history of back pain; , Severe back pain, no known injur y TECHNIQUE: Noncontrast CT chest abdomen pelvis followed by CT angiogram chest abdomen pelvis. A noncontrast CT c hest Multiple axial CT images of the chest, abdomen, and pelvis were obtained prior to and after the administration of IV contrast. 3-D reformats and maximum intensity projection format were performed o n a separate workstation. . Contrast used:100 mL of Isovue 370 without and with IV Contrast, Oral contrast used: None CT DLP: 2830.8 mGycm, Automated exposure control for dose reduction was used. FINDINGS: ARTERIAL VASCULATURE: ascending thoracic aorta ectasia up to 43 mm. The aortic arch and its branches are patent. There is no evidence for intramural hematoma within the aorta on noncontrast imaging. Pos tcontrast imaging demonstrates no evidence for dissection. The major vessels of the aortic arch are p atent. The major vessels of the abdominal aorta are patent. No significant atherosclerosis. PULMONARY ARTERIAL VASCULATURE: Normal caliber. No evidence for a filling defect within the central p ulmonary arterial vasculature. Evaluation limited of the more distal branches. VENOUS SYSTEM: Unremarkable. LUNGS/ PLEURA: No focal consolidation, pneumothorax or pleural effusion. Eccentric calcified nodule i n the left lower lobe is unchanged from 2016. AIRWAY: Patent and unremarkable. HEART: Cardiomegaly is demonstrated. No significant coronary artery calcifications. Left circumflex a rtery tubular density possibly representing stent. MEDIASTINUM: No gross evidence of adenopathy. MUSCULOSKELETAL: Mild disc degeneration changes are present throughout the thoracolumbar spine. Endpl ate deformity of T4 with less than 25% height loss versus Schmorl's node. Wedging of T10 and T11 mild ly. Mild scoliosis changes apex left L3.. Grade 1 anterolisthesis of L4 on L5.. No significant spinal canal or neural foraminal stenosis. SOFT TISSUES/LYMPH NODES: Unremarkable. LOWER NECK: No significant findings. Abdomen: LIVER: Unremarkable GALLBLADDER AND BILE DUCTS: Gallstone near the gallbladder neck. PANCREAS: Unremarkable. SPLEEN: Unremarkable. ADRENAL GLANDS: Unremarkable. KIDNEYS AND URETERS: No evidence of hydronephrosis or renal calculus. The ureters are unremarkable. Left renal cortical subcentimeter probable cyst. PELVIS BLADDER: Unremarkable REPRODUCTIVE: Unremarkable. ABDOMEN & PELVIS STOMACH AND BOWEL: No evidence of bowel obstruction. Appendix is normal. PERITONEUM/RETROPERITONEUM: No evidence of pneumoperitoneum or free fluid. LYMPH NODES: No gross evidence for lymphadenopathy. SOFT TISSUE/ABDOMINAL WALL: Fat-containing umbilical hernia. IMPRESSION: 1. No evidence for aortic dissection, aneurysm or occlusion. 2. Mild degeneration changes throughout the spine with scoliosis in the lumbar spine. T4 superior end plate Schmorl's node versus compression deformity is chronic from 2016. Significant atherosclerosis o f the arterial vasculature. No evidence for spinal fracture high-grade neural foraminal or spinal can al stenosis. 3. Mild ectasia of ascending thoracic aorta up to 43 mm. 4. Gallstone near the gallbladder neck.' 5. Mild cardiomegaly 6. Left renal cortical cyst. 7. Fat-containing umbilical hernia. 8. Stable left lower lobe partially calcified nodule from 2016 [facility], , 05/15/2024 10:06 AM
[2024-05-15] MEDS: HYDROmorphone 0.5 MG/0.5 ML SYRINGE IVP STA (11:10)
[2024-05-15] MEDS: APIXABAN 5 MG TAB PO STA (11:12)
[2024-05-15] MEDS: LOSARTAN 25 MG TAB PO STA (11:12)
[2024-05-15 12:34] VITALS: BP 148/85; PULSE 67; RESP 20; TEMP 98.2
== END 2024-05-15 12:33 | disposition home or self-care (01) ==
LOC: EC 06:55
DX: M54.9 Dorsalgia, unspecified (principal); I48.91 Unspecified atrial fibrillation; F17.200 Nicotine dependence, unspecified, uncomplicated
CPT/HCPCS: 36415; 93005; 80053; 83735; 85025; 85610; 85730; 72070; 72100; 71046; 71275; 74174; 99285; 96372; 96374; 96375; 96361; J1200; J2360; J3490; J2270; J1171; Q9967; J2919

== ENCOUNTER 2024-05-17 10:30 | Emergency (ER) | payer MEDICARE ==
[2024-05-17 11:20] LABS: Basophils % (A) 0 %; Eosinophils # (A) 0.2 k/uL (0-0.7); Eosinophils % (A) 2 %; HCT 48.4 % (39.0-53.0); HGB 15.3 gm/dL (13.0-17.5); Lymphocytes # (A) 0.8 k/uL (1.0-4.8); Lymphocytes % (A) 5 %; MCH 30.6 pg (25.0-35.0); MCHC 31.6 g/dL (31.0-37.0); MCV 96.8 fL (80.0-100.0); Mean Platelet Volume 8.6; Monocytes # (A) 0.8 k/uL (0-1.0); Monocytes % (A) 5 %; Neutrophils # (A) 12.4 k/uL (1.3-7.7); Neutrophils % (A) 87 %; Platelet Count 193 k/uL (150-450); RBC 4.99 m/uL (4.30-5.90); WBC 14.3 k/uL (3.8-10.6)
[2024-05-17 11:30] LABS: INR 1.1 (<1.2); Partial Thromboplastin Time 30.4 sec (22.0-30.0); Prothrombin Time 11.8 sec (10.0-12.5)
[2024-05-17 11:40] LABS: ALT 34 U/L (4-49); African American GFR (CKD) 73 (>60 ml/min/1.73 sqM); Albumin 3.8 g/dL (3.5-5.0); Anion Gap 5 mmol/L; Blood Urea Nitrogen 29 mg/dL (9-20); Carbon Dioxide 25 mmol/L (22-30); Chloride 105 mmol/L (98-107); Glucose 109 mg/dL (74-99); Non-African American GFR(CKD) 63 (>60 ml/min/1.73 sqM); Sodium 135 mmol/L (137-145); Total Bilirubin 1.4 mg/dL (0.2-1.3); Total Protein 6.8 g/dL (6.3-8.2)
--- NOTE | 2024-05-17 11:42 | ED ---
General Adult HPI - General Chief complaint: Syncope Stated complaint: Syncope Time Seen by Provider: 05/17/24 10:34 Source: patient, EMS, RN notes reviewed, old records reviewed Mode of arrival: EMS Limitations: no limitations - History of Present Illness Initial comments: 69 yo male presenting with a syncopal episode at the doctor's office. Patient w as about to receive a shot for back pain and felt lightheaded and sat down with a brief syncopal episode. He states he has had not had much to drink over the past 24 hours. No chest pain or abdominal pain. Patient asymptomatic at the time my evaluation. - Related Data Home Medications Medication Instructions Recorded Confirmed Apixaban [Eliquis] 5 mg PO BID 01/13/24 05/17/24 Cholecalciferol [Vitamin D3 (125 125 mcg PO DAILY 01/13/24 05/17/24 Mcg = 5000 Iu)] Losartan [Cozaar] 12.5 mg PO DAILY 05/17/24 05/17/24 Mv-Min/Folic/K1/Lycopen/Lutein 1 tab PO BID 05/17/24 05/17/24 [Centrum Silver Men Tablet] Omeprazole 40 mg PO DIRECTED 05/17/24 05/17/24 predniSONE 50 mg PO DIRECTED 05/17/24 05/17/24 Previous Rx's Medication Instructions Recorded Atorvastatin [Lipitor] 40 mg PO HS #180 tab 01/18/24 Acetaminophen-Codeine 300-30mg 1 tab PO Q4H PRN 3 Days #18 tablet 05/15/24 [Tylenol w/codeine #3] Allergies Allergy/AdvReac Type Severity Reaction Status Date / Time hydrocodone Allergy CONFUSION/H Verified 05/17/24 11:19 ALLUCINATIO NS morphine Allergy Rash/Hives Verified 05/17/24 11:19 cephalexin monohydrate AdvReac Nausea & Verified 05/17/24 11:19 [From Keflex] Vomiting & Diarrhea clindamycin AdvReac Nausea & Verified 05/17/24 11:19 Vomiting & Diarrhea latex AdvReac Rash/Hives Verified 05/17/24 11:19 Review of Systems ROS Statement: Those systems with pertinent positive or pertinent negative responses have been documented in the HPI. ROS Other: All systems not noted in ROS Statement are negative. Past Medical History Past Medical History: Atrial Fibrillation, Deep Vein Thrombosis (DVT), Myoc ardial Infarction (ID) Additional Past Medical History / Comment(s): vitamin D3 deficient, DVT LEFT LEG, right leg x 2. slivers to both feet and then removed 03/24/23, was on abx and was allergic and stopped taking it and unsure what med is , mi x6 05/06. chronic kidney disease 3A no meds or dialysis. Liver enzymes elevated rechecking after colonoscopy Last Myocardial Infarction Date:: 05/06 History of Any Multi-Drug Resistant Organisms: C-DIFF Date of last positivie culture/infection: c-diff 2012 MDRO Source:: stool Past Surgical History: Heart Catheterization, Heart Catheterization With Stent, Joint Replacement, Orthopedic Surgery Additional Past Surgical History / Comment(s): right knee replacement, bilateral hip surgery, heart cath, varicose vein removal. Past Anesthesia/Blood Transfusion Reactions: No Reported Reaction Additional Past Anesthesia/Blood Transfusion Reaction / Comment(s): no blood transfusion Date of Last Stent Placement:: 04/27/22 Past Psychological History: No Psychological Hx Reported Smoking Status: Current some day smoker Past Alcohol Use History: None Reported Past Drug Use History: None Reported - Past Family History Father Family Medical History: Cancer Brother(s) Family Medical History: Cancer Additional Family Medical History / Comment(s): prostate Mother Additional Family Medical History / Comment(s): Mother was exposed to lead paint during General Exam General appearance: alert, in no apparent distress Head exam: Present: atraumatic, normocephalic Eye exam: Present: normal appearance, PERRL ENT exam: Present: normal exam Neck exam: Present: normal inspection. Absent: tenderness Respiratory exam: Present: normal lung sounds bilaterally, respiratory distress Cardiovascular Exam: Present: regular rate, irregular rhythm GI/Abdominal exam: Present: soft. Absent: distended, tenderness, guarding Extremities exam: Present: normal inspection, normal capillary refill Neurological exam: Present: alert, oriented X3, CN II-XII intact. Absent: motor sensory deficit Psychiatric exam: Present: normal affect, normal mood Skin exam: Present: warm, dry, intact Course Vital Signs 05/17/24 10:31 Temperature 97.5 F L Pulse Rate 51 L Respiratory 16 Rate Blood Pressure 154/75 O2 Sat by Pulse 99 Oximetry Medical Decision Making - Medical Decision Making Was pt. sent in by a medical professional or institution (Dr., PA, VOLCANOLOGY PROFESSOR, urgent care, hospital, or [facility]...) When possible be specific @ -No Did you speak to anyone other than the patient for history (EMS, parent, family, police, friend...)? What history was obtained from this source @ -No Did you review nursing and triage notes (agree or disagree)? Why? @ -I reviewed and agree with nursing and triage notes Were old charts reviewed (outside hosp., previous admission, EMS record, old EKG, old radiological studies, urgent care reports/EKG's, [facility] records)? Report findings @ -No old charts were reviewed @Differential Syncope: Valvular disease, hypertrophic cardiomyopathy, pulmonary embolism, tamponade, tachycardia, bradycardia, ID, hypovolemia, hemorrhage, dissection, anemia, intracranial hemorrhage, seizure, hypoglycemia, carbon monoxide poisoning, this is not meant to be an all-inclusive list. EKG interpreted by me (3pts min.). @Atrial fibrillation rate of 77, low voltage, QRS duration 105, QTc 396 X-rays interpreted by me (1pt min.). @Chest x-ray negative for acute cardiopulmonary disease CT interpreted by me (1pt min.). @ -None done U/S interpreted by me (1pt. min.). @ -None done What testing was considered but not performed or refused? (CT, X-rays, U/S, labs)? Why? @ -None What meds were considered but not given or refused? Why? @ -None Did you discuss the management of the patient with other professionals (professionals i.e. TATUM Markham, VOLCANOLOGY PROFESSOR, lab, RT, psych nurse, clinical social worker, stave machine tender, teacher, dispatch officer, disease case manager)? Give summary @ -No Was smoking cessation discussed for >3mins.? @ -No Was critical care preformed (if so, how long)? @ -No Were there social determinants of health that impacted care today? How? (Homelessness, low income, unemployed, alcoholism, drug addiction, transportation, low edu. Level, literacy, decrease access to med. care, penitentiary, rehab)? @ -No Was there de-escalation of care discussed even if they declined (Discuss DNR or withdrawal of care, Hospice)? DNR status @ -No What co-morbidities impacted this encounter? (DM, HTN, Smoking, COPD, CAD, Cancer, CVA, ARF, Chemo, Hep., AIDS, mental health diagnosis, sleep apnea, morbid obesity)? @ -[Atrial fibrillation, CAD Was patient admitted / discharged? Hospital course, mention meds given and route, prescriptions, significant lab abnormalities, going to OR and other pertinent info. @69-year-old male with a brief syncopal episode admits to not having much to drink over the past 24 hours. Patient feels well-appearing but states that his urine has been dark and believes he is dehydrated. Given IV fluids and feels significantly better. Patient is in rate controlled atrial fibrillation with stable blood pressure. Chest x-ray is clear. Normal CBC, normal CMP, negative troponin, negative urinalysis. Patient eager for discharge. Undiagnosed new problem with uncertain prognosis? @ -No Drug Therapy requiring intensive monitoring for toxicity (Heparin, Nitro, Insulin, Cardizem)? @ -No Were any procedures done? @ -No Diagnosis/symptom? @ -Syncope, dehydration Acute, or Chronic, or Acute on Chronic? @ -Acute Uncomplicated (without systemic symptoms) or Complicated (systemic symptoms)? @ -Default Side effects of treatment? @ -No Exacerbation, Progression, or Severe Exacerbation? @ -No Poses a threat to life or bodily function? How? (Chest pain, USA, ID, pneumonia, PE, COPD, DKA, ARF, appy, cholecystitis, CVA, Diverticulitis, Homicidal, Suicidal, threat to staff... and all critical care pts) @Low risk at this time - Lab Data Result diagrams: 05/17/24 11:05 05/17/24 11:05 Lab Results 05/17/24 05/17/24 05/17/24 Range/Units 11:05 11:05 11:05 WBC 14.3 H (3.8-10.6) k/uL RBC 4.99 (4.30-5.90) m/uL Hgb 15.3 (13.0-17.5) gm/dL Hct 48.4 (39.0-53.0) % MCV 96.8 (80.0-100.0) fL MCH 30.6 (25.0-35.0) pg MCHC 31.6 (31.0-37.0) g/dL RDW 13.0 (11.5-15.5) % Plt Count 193 (150-450) k/uL MPV 8.6 Neutrophils % 87 % Lymphocytes % 5 % Monocytes % 5 % Eosinophils % 2 % Basophils % 0 % Neutrophils # 12.4 H (1.3-7.7) k/uL Lymphocytes # 0.8 L (1.0-4.8) k/uL Monocytes # 0.8 (0-1.0) k/uL Eosinophils # 0.2 (0-0.7) k/uL Basophils # 0.0 (0-0.2) k/uL PT 11.8 (10.0-12.5) sec INR 1.1 (<1.2) APTT 30.4 H (22.0-30.0) sec Sodium 135 L (137-145) mmol/L Potassium 4.6 (3.5-5.1) mmol/L Chloride 105 (98-107) mmol/L Carbon Dioxide 25 (22-30) mmol/L Anion Gap 5 mmol/L BUN 29 H (9-20) mg/dL Creatinine 1.17 (0.66-1.25) mg/dL Est GFR (CKD-EPI)AfAm 73 (>60 ml/min/1.73 sqM) Est GFR (CKD-EPI)NonAf 63 (>60 ml/min/1.73 sqM) Glucose 109 H (74-99) mg/dL Calcium 9.0 (8.4-10.2) mg/dL Magnesium 1.6 (1.6-2.3) mg/dL Total Bilirubin 1.4 H (0.2-1.3) mg/dL AST 41 (17-59) U/L ALT 34 (4-49) U/L Alkaline Phosphatase 80 (38-126) U/L Troponin I (0.000-0.034) ng/mL Total Protein 6.8 (6.3-8.2) g/dL Albumin 3.8 (3.5-5.0) g/dL Urine Color Urine Appearance (Clear) Urine pH (5.0-8.0) Ur Specific Carney (1.001-1.035) Urine Protein (Negative) Urine Glucose (UA) (Negative) Urine Ketones (Negative) Urine Blood (Negative) Urine Nitrite (Negative) Urine Bilirubin (Negative) Urine Urobilinogen (<2.0) mg/dL Ur Leukocyte Esterase (Negative) 05/17/24 05/17/24 Range/Units 11:05 12:59 WBC (3.8-10.6) k/uL RBC (4.30-5.90) m/uL Hgb (13.0-17.5) gm/dL Hct (39.0-53.0) % MCV (80.0-100.0) fL MCH (25.0-35.0) pg MCHC (31.0-37.0) g/dL RDW (11.5-15.5) % Plt Count (150-450) k/uL MPV Neutrophils % % Lymphocytes % % Monocytes % % Eosinophils % % Basophils % % Neutrophils # (1.3-7.7) k/uL Lymphocytes # (1.0-4.8) k/uL Monocytes # (0-1.0) k/uL Eosinophils # (0-0.7) k/uL Basophils # (0-0.2) k/uL PT (10.0-12.5) sec INR (<1.2) APTT (22.0-30.0) sec Sodium (137-145) mmol/L Potassium (3.5-5.1) mmol/L Chloride (98-107) mmol/L Carbon Dioxide (22-30) mmol/L Anion Gap mmol/L BUN (9-20) mg/dL Creatinine (0.66-1.25) mg/dL Est GFR (CKD-EPI)AfAm (>60 ml/min/1.73 sqM) Est GFR (CKD-EPI)NonAf (>60 ml/min/1.73 sqM) Glucose (74-99) mg/dL Calcium (8.4-10.2) mg/dL Magnesium (1.6-2.3) mg/dL Total Bilirubin (0.2-1.3) mg/dL AST (17-59) U/L ALT (4-49) U/L Alkaline Phosphatase (38-126) U/L Troponin I <0.012 (0.000-0.034) ng/mL Total Protein (6.3-8.2) g/dL Albumin (3.5-5.0) g/dL Urine Color Light Yellow Urine Appearance Clear (Clear) Urine pH 5.5 (5.0-8.0) Ur Specific Carney 1.017 (1.001-1.035) Urine Protein Trace H (Negative) Urine Glucose (UA) Negative (Negative) Urine Ketones Negative (Negative) Urine Blood Negative (Negative) Urine Nitrite Negative (Negative) Urine Bilirubin Negative (Negative) Urine Urobilinogen <2.0 (<2.0) mg/dL Ur Leukocyte Esterase Negative (Negative) Disposition Clinical Impression: Syncope, Dehydration Disposition: HOME SELF-CARE Condition: Fair Instructions (If sedation given, give patient instructions): Dehydration (ED), Syncope (ED) Is patient prescribed a controlled substance at d/c from ED?: No Referrals: Hair Rogers MD [Primary Care Provider] - 1-2 days Time of Disposition: 13:15
[2024-05-17 12:02] LABS: Magnesium 1.6 mg/dL (1.6-2.3); Potassium 4.6 mmol/L (3.5-5.1)
--- NOTE | 2024-05-17 12:02 | XR ---
EXAMINATION TYPE: XR chest 2V DATE OF EXAM: 05/17/2024 11:59 AM COMPARISON: Chest radiographs from 05/15/2024 TECHNIQUE: XR chest 2V Frontal and lateral views of the chest. CLINICAL INDICATION:Male, 69 years old with history of syncope; FINDINGS: Lungs/Pleura: There is no evidence of pleural effusion, focal consolidation, or pneumothorax. Pulmonary vascularity: Unremarkable. Heart/mediastinum: Cardiomediastinal silhouette is enlarged and stable. Musculoskeletal: Multiple level degenerative disc disease changes seen throughout the spine. No acute osseous abnormality. IMPRESSION: No acute cardiopulmonary disease/process. [facility], , 05/17/2024 12:00 PM
[2024-05-17 12:03] LABS: AST 41 U/L (17-59); Alkaline Phosphatase 80 U/L (38-126)
[2024-05-17 13:07] LABS: Appearance,Urine Clear (Clear); Bilirubin,Urine Negative (Negative); Blood,Urine Negative (Negative); Color,Urine Light Yellow; Glucose,Urine (UA) Negative (Negative); Ketones,Urine Negative (Negative); Leukocyte Esterase,Urine Negative (Negative); Nitrite,Urine Negative (Negative); PH, Urine 5.5 (5.0-8.0); Protein,Urine Trace (Negative); Specific Gravity,Urine 1.017 (1.001-1.035); Urobilinogen,Urine <2.0 mg/dL (<2.0)
[2024-05-17] MEDS: SODIUM CHLORIDE 0.9% 500 ML 500 ML IV ONE (13:16)
[2024-05-17] MEDS: KETOROLAC 15 MG/ML 1 ML VIAL IVP STA (14:56)
[2024-05-17 15:11] VITALS: BP 160/99; PULSE 81; RESP 20; TEMP 98.3
== END 2024-05-17 15:10 | disposition home or self-care (01) ==
LOC: EC 10:30
DX: R55 Syncope and collapse (principal); E86.0 Dehydration; I48.91 Unspecified atrial fibrillation; I25.10 Atherosclerotic heart disease of native coronary artery without angina pectoris; F17.200 Nicotine dependence, unspecified, uncomplicated
CPT/HCPCS: 36415; 93005; 80053; 83735; 84484; 85025; 85610; 85730; 81003; 71046; 99285; 96374; J1885